=== PATIENT | female | born 1950 | race Caucasian/White ===

== ENCOUNTER → 2023-05-19 10:50 | Outpatient (REF) | payer OTHER, SELFPAY ==
[2023-05-19 12:11] LABS: % Basophils 0.8 % (0-2); % Eosinophils 1.5 % (0-6); % Immature Granulocytes 0.2 % (0-0.5); % Monocytes 8.1 % (1.7-9.3); % Neutrophils 60.4 % (42.2-75.2); Absolute Eosinophils 0.1 10^3/uL (0-0.7); Absolute Lymphocytes 1.4 10^3/uL (1.2-3.4); Absolute Monocytes 0.4 10^3/uL (0.1-0.6); Absolute Neutrophils 2.9 10^3/uL (1.4-6.5); Hematocrit 40.2 % (37.0-47.0); Hemoglobin 13.4 g/dL (12.0-16.0); Mean Corp Hgb Conc. 33.3 g/dL (33.0-37.0); Mean Corpuscular Hgb 30.2 pg (27.0-31.0); Mean Corpuscular Volume 90.7 fL (81.0-99.0); Mean Platelet Volume 9.9 fL (7.4-10.4); Nucleated Red Blood Cells % 0 %; Platelet Count 319 10^3/uL (130-400); Red Blood Cell Count 4.43 10^6/uL (4.20-5.40); Red Cell Dist. Width 12.8 % (11.5-14.5); White Blood Cell Count 4.7 10^3/uL (4.8-10.8)
[2023-05-19 13:17] LABS: ALT (SGPT) 23 U/L (0-35); AST (SGOT) 25 U/L (14-36); Albumin 4.4 g/dl (3.5-5.0); Alkaline Phosphatase 75 U/L (38-126); Blood Urea Nitrogen 17 mg/dl (7-17); Calcium 9.9 mg/dl (8.4-10.2); Carbon Dioxide 30 mmol/L (22-30); Chloride 98 mmol/L (98-107); Glucose 87 mg/dl (70-99); HDL Cholesterol 78 mg/dl; LDL Cholesterol, Calculated 147 mg/dl; Potassium 4.5 mmol/L (3.5-5.1); Sodium 135 mmol/L (135-145); Total Bilirubin 0.8 mg/dl (0.2-1.3); Total Cholesterol 245 mg/dl (50-199); Total Protein 7.7 g/dl (6.3-8.2); Triglyceride 102 mg/dl (10-149); Very Low Density Lipoprotein 20 mg/dl (0-30); eGFR 59.86
[2023-05-19 13:44] LABS: CEA 0.96 ng/ml; TSH Reflex To Free T4 3.44 uIU/ml (0.47-4.68)
[2023-05-19 14:09] LABS: Glycohemoglobin (HgbA1c) 5.6 % (4.0-5.6)
== END ==
LOC: REG 10:50
PROVIDERS: ATTENDING PHYSICIAN Internal Medicine Hematology & Oncology; FAMILY PHYSICIAN Nurse Practitioner Adult Health; REFERRING PHYSICIAN Surgery
DX: C20 Malignant neoplasm of rectum (principal)
CPT/HCPCS: 36415; 80053; 80061; 82378; 83036; 84443; 85025

== ENCOUNTER → 2023-06-01 12:47 | Outpatient (REF) | payer OTHER, SELFPAY | LOC: RAD 12:47 | PROVIDERS: ATTENDING PHYSICIAN Internal Medicine Hematology & Oncology; FAMILY PHYSICIAN Nurse Practitioner Adult Health | DX: C20 Malignant neoplasm of rectum (principal) | CPT/HCPCS: 71260; 74177; Q9967 ==

== ENCOUNTER 2023-07-04 06:18 | Day surgery (SDC) | payer OTHER, SELFPAY ==
[2023-06-28 07:01] VITALS: BMI 31.3
[2023-06-28 08:58] LABS: Hematocrit 42.1 % (37.0-47.0); Hemoglobin 13.7 g/dL (12.0-16.0); Mean Corp Hgb Conc. 32.5 g/dL (33.0-37.0); Mean Corpuscular Hgb 30.2 pg (27.0-31.0); Mean Corpuscular Volume 92.7 fL (81.0-99.0); Mean Platelet Volume 10.2 fL (7.4-10.4); Platelet Count 303 10^3/uL (130-400); Red Blood Cell Count 4.54 10^6/uL (4.20-5.40); Red Cell Dist. Width 12.9 % (11.5-14.5); White Blood Cell Count 5.6 10^3/uL (4.8-10.8)
[2023-06-28 09:34] LABS: Blood Urea Nitrogen 10 mg/dl (7-17); Calcium 9.5 mg/dl (8.4-10.2); Carbon Dioxide 26 mmol/L (22-30); Chloride 104 mmol/L (98-107); Estimated Creatinine Clearance 70 ml/min; Glucose 98 mg/dl (70-99); Potassium 4.2 mmol/L (3.5-5.1); Sodium 138 mmol/L (135-145); eGFR > 60.00
[2023-06-28 10:03] LABS: CEA 1.04 ng/ml
[2023-07-04] MEDS: NORMOSOL-R 1000 IV (09:00)
[2023-07-04 09:08] VITALS: BP 123/66; BMI 31.3
[2023-07-04] MEDS: TYLENOL 1000 MG PO (09:17)
[2023-07-04 15:00] VITALS: BP 103/70
[2023-07-04 15:15] VITALS: BP 118/77
[2023-07-04 15:36] VITALS: BP 123/78
[2023-07-04 15:45] VITALS: BP 112/87
== END 2023-07-04 16:10 | disposition home or self-care (01) ==
LOC: SDS 06:18
PROVIDERS: ATTENDING PHYSICIAN Surgery; FAMILY PHYSICIAN Nurse Practitioner Adult Health; OTHER PHYSICIAN Internal Medicine Gastroenterology; OTHER PHYSICIAN Internal Medicine Hematology & Oncology; OTHER PHYSICIAN Radiology Radiation Oncology
DX: K62.4 Stenosis of anus and rectum (principal); Z98.890 Other specified postprocedural states
CPT/HCPCS: 45500; 36415; 80048; 82378; 85027; 86850; 86900; 86901; 87070; J1335

== ENCOUNTER 2023-09-07 06:07 | Inpatient (IN) | payer OTHER, SELFPAY ==
[2023-08-30 10:22] LABS: Hematocrit 40.4 % (37.0-47.0); Hemoglobin 13.7 g/dL (12.0-16.0); Mean Corp Hgb Conc. 33.9 g/dL (33.0-37.0); Mean Corpuscular Hgb 30.7 pg (27.0-31.0); Mean Corpuscular Volume 90.6 fL (81.0-99.0); Mean Platelet Volume 9.9 fL (7.4-10.4); Platelet Count 306 10^3/uL (130-400); Red Blood Cell Count 4.46 10^6/uL (4.20-5.40); Red Cell Dist. Width 12.4 % (11.5-14.5); White Blood Cell Count 4.7 10^3/uL (4.8-10.8)
[2023-08-30 10:30] VITALS: BMI 31.3
[2023-08-30 10:44] LABS: APTT 28.5 Sec (23.4-35.0); PT 13.2 Sec (11.4-14.6)
[2023-08-30 11:23] LABS: ALT (SGPT) 29 U/L (0-35); AST (SGOT) 27 U/L (14-36); Albumin 4.5 g/dl (3.5-5.0); Alkaline Phosphatase 79 U/L (38-126); Blood Urea Nitrogen 10 mg/dl (7-17); Calcium 9.9 mg/dl (8.4-10.2); Carbon Dioxide 26 mmol/L (22-30); Chloride 105 mmol/L (98-107); Direct Bilirubin 0.2 mg/dl (0.0-0.4); Estimated Creatinine Clearance 70 ml/min; Glucose 112 mg/dl (70-99); HDL Cholesterol 72 mg/dl; LDL Cholesterol, Calculated 87 mg/dl; Potassium 4.5 mmol/L (3.5-5.1); Sodium 138 mmol/L (135-145); Total Cholesterol 184 mg/dl (50-199); Total Protein 7.4 g/dl (6.3-8.2); Triglyceride 126 mg/dl (10-149); Very Low Density Lipoprotein 25 mg/dl (0-30); eGFR > 60.00
[2023-08-30 11:53] LABS: CEA 1.02 ng/ml
[2023-08-30 12:06] LABS: Glycohemoglobin (HgbA1c) 5.6 % (4.0-5.6)
[2023-09-07] VITALS (18 sets, daily range): BP systolic 83–138; BP diastolic 51–83; BMI 31.3
[2023-09-07] MEDS: TYLENOL 1000 MG PO (06:29)
[2023-09-07] MEDS: ENTEREG 12 MG PO (06:29)
[2023-09-07] MEDS: HEPARIN 5000 UNITS SC (06:30)
[2023-09-07] MEDS: NORMOSOL-R 1000 IV ×2 (06:45→11:59)
--- NOTE | 2023-09-07 11:22 | W.IMMPOSTOP ---
Surgical Immed Post Op Note
-
Primary Surgeon: Papito Coombs MD
[facility] Chief Librarian: YURI Mann
Pre-op Diagnosis: Fecal incontinence
Post-op Diagnosis: Same
Procedure Performed: Robotic end sigmoid colostomy
Anesthesia Type: GET
Specimen / Cultures: None
Estimated Blood Loss: 20cc
Complications: None
Operative Findings: Multiple adhesions
Patient's updated.
--- NOTE | 2023-09-07 11:44 | SUR.PHASEI ---
Pt. presents with new ostomy in the LLQ. Stoma is red, moist, with no signs of of hematoma or active bleeding. Stoma is not round and protruding above skin. MD Coombs made aware
[2023-09-07] MEDS: TORADOL 15 MG IV ×2 (11:59→17:00)
[2023-09-07] MEDS: DILAUDID 0.25 MG IV ×2 (12:47→21:38)
[2023-09-07] MEDS: TYLENOL PO (14:29)
[2023-09-07] MEDS: TYLENOL 650 MG PO ×2 (14:31→21:37)
[2023-09-07] MEDS: ZOFRAN 4 MG IV (16:03)
--- NOTE | 2023-09-07 16:45 | PTCARENOTE ---
Addendum entered by Daniela Ko RN 09/07/23 17:21:
Per Clem TUBE WINDER HAND, Q1 x 4hr vital signs completed.
Original Note:
3578: Patient arrived to 2S. Full head to toe assessment completed. New colostomy creation on LLQ is red and moist. Colostomy is not budded, but Dr. Coombs made aware by Clem [employer] WINDER [employer]. 4 lap sites open to air with surgical glue. IVF running per
order. Patient wearing 1L NC with SpO2 greater than 92%. Call cleary within reach and bed in lowest position.
[2023-09-07] MEDS: ADDERALL 20 MG PO (16:59)
[2023-09-07] MEDS: KLONOPIN 0.5 MG PO (21:37)
[2023-09-08] MEDS: ABILIFY 10 MG PO ×2 (00:14→20:18)
[2023-09-08] MEDS: NORMOSOL-R 1000 IV ×2 (00:15→16:31)
[2023-09-08] MEDS: NON-FORMULARY ITEM PO (00:15)
[2023-09-08] MEDS: TORADOL 15 MG IV ×5 (00:15→23:59)
[2023-09-08] MEDS: TYLENOL 650 MG PO ×5 (00:15→20:14)
[2023-09-08 03:28] VITALS: BP 143/81
[2023-09-08] MEDS: SYNTHROID 150 MCG PO (04:18)
[2023-09-08] MEDS: DILAUDID 0.25 MG IV ×2 (04:18→10:15)
[2023-09-08 06:00] VITALS: BMI 31.8
[2023-09-08 07:25] VITALS: BP 137/78
[2023-09-08 07:32] LABS: % Basophils 0.1 % (0-2); % Immature Granulocytes 0.2 % (0-0.5); % Lymphocytes 10.9 % (20.5-51.1); % Monocytes 7.6 % (1.7-9.3); % Neutrophils 81.2 % (42.2-75.2); Absolute Monocytes 0.7 10^3/uL (0.1-0.6); Absolute Neutrophils 7.1 10^3/uL (1.4-6.5); Hematocrit 33.3 % (37.0-47.0); Hemoglobin 11.2 g/dL (12.0-16.0); Mean Corp Hgb Conc. 33.6 g/dL (33.0-37.0); Mean Corpuscular Hgb 31.2 pg (27.0-31.0); Mean Corpuscular Volume 92.8 fL (81.0-99.0); Nucleated Red Blood Cells % 0 %; Platelet Count 269 10^3/uL (130-400); Red Blood Cell Count 3.59 10^6/uL (4.20-5.40); Red Cell Dist. Width 12.7 % (11.5-14.5); White Blood Cell Count 8.8 10^3/uL (4.8-10.8)
[2023-09-08 07:48] LABS: Blood Urea Nitrogen 14 mg/dl (7-17); Calcium 8.8 mg/dl (8.4-10.2); Carbon Dioxide 25 mmol/L (22-30); Chloride 103 mmol/L (98-107); Estimated Creatinine Clearance 63 ml/min; Glucose 114 mg/dl (70-99); Potassium 4.3 mmol/L (3.5-5.1); Sodium 134 mmol/L (135-145); eGFR 59.86
[2023-09-08] MEDS: ZOFRAN 4 MG IV (08:44)
[2023-09-08] MEDS: ENTEREG 12 MG PO ×2 (09:21→20:14)
[2023-09-08] MEDS: CRESTOR 5 MG PO (09:21)
[2023-09-08] MEDS: NON-FORMULARY ITEM 40 MG PO (09:21)
--- NOTE | 2023-09-08 09:23 | W.PN.GS2 ---
Addendum entered and electronically signed by Theo Sam MD 09/08/23 14:34:
Patient seen and examined this a.m. with nurse practitioner. Agree with documented progress note. This is a delayed entry.
Initial postoperative nausea had been subsiding. Occasional flatus noted in her ostomy appliance. Headache. Some postop incisional pain.
AFVSS
ABD: Softly distended, robotic surgical sites with glue dressings, left-sided and ostomy with healthy mucosa but a bit edematous. Some bowel sweat in bag and small amounts of air. No stool
Assessment/plan: POD #1 status post RAL creation of end sigmoid colostomy
Holding diet on clears and advised to go slow as examination was a bit protuberant
Continue with routine postoperative supportive care
Original Note:
Today's Communication / Plan
-
clears as tolerated
Assessment / Plan
-
72 yo female with fecal incontinence s/p coloanal pull through for rectal cancer now POD #1 robotic end sigmoid colostomy for management
AFVSS
Passing flatus but with mild nausea
No leukocytosis
Mild acute anemia secondary to expected intraoperative losses and hemodilution
--Ok for clears as tolerated
--Scheduled Tylenol/toradol and prn dilaudid
--OOB/Ambulate
--Continue home meds
--Stoma nurse consult for ostomy care
--IVF until good PO intake
--Lovenox/SCD's for VTE ppx
Subjective Data
-
Date of Service: September 08, 2023
Patient seen and examined at bedside with primary RN. She notes a mild headache and some mild nausea. She has been passing some flatus via stoma. Did not sleep well overnight. Pain present but well managed with current regimen.
Objective Data
-
Intake and Output
08/02/24 08/03/24 08/04/24
06:59 06:59 06:59
Intake Total 1040 / 1040
Output Total 950 / 950
Balance 90 / 90
Intake:
Oral fluids 490 / 490
IV fluids (Total) 550 / 550
Normosol 150 / 150
Output:
Urine, Jernigan 950 / 950
Vital Signs
Temp Pulse Resp BP Pulse Ox
98.2 F 91 16 137/78 93
09/08/23 07:25 09/08/23 07:25 09/08/23 07:25 09/08/23 07:25 09/08/23 07:25
Lab Results
09/08/23 06:55
09/08/23 06:55
Calcium 8.8 mg/dl (8.4-10.2) 09/08/23 06:55
Total Bilirubin 1.0 mg/dl (0.2-1.3) 08/30/23 08:39
Direct Bilirubin 0.2 mg/dl (0.0-0.4) 08/30/23 08:39
AST 27 U/L (14-36) 08/30/23 08:39
ALT 29 U/L (0-35) 08/30/23 08:39
Alkaline Phosphatase 79 U/L (38-126) 08/30/23 08:39
Total Protein 7.4 g/dl (6.3-8.2) 08/30/23 08:39
Albumin 4.5 g/dl (3.5-5.0) 08/30/23 08:39
Physical Exam
-
NAD
ABD soft, nt, mild incisional tenderness. Incisions with ecchymosis present but intact glue and no erythema.
Stoma pink/viable with bowel sweat and some flatus noted within the appliance
[2023-09-08] MEDS: ADDERALL 20 MG PO ×3 (10:15→17:40)
[2023-09-08] MEDS: PROTONIX 40 MG PO (10:15)
--- NOTE | 2023-09-08 10:55 | CM ---
Reviewed the chart notes and spoke with the patient at the bedside. The patient resides with her spouse in a three story home with two steps to enter. The patient reports no DME/VN/SNF in the past. The patient confirmed her pharmacy of choice is
the [facility]. CM continues to be available to patient/family and is monitoring medical plan for needs at discharge.
Plan: Discharge plans will depend on the patient's progress.
[2023-09-08 11:25] VITALS: BP 132/76
[2023-09-08] MEDS: TYLENOL PO ×2 (12:30→12:36)
[2023-09-08] MEDS: COMPAZINE 10 MG IV (13:38)
[2023-09-08 15:30] VITALS: BP 134/77
[2023-09-08] MEDS: LOVENOX 40 MG SC (17:41)
[2023-09-08] MEDS: KLONOPIN 0.5 MG PO (20:18)
[2023-09-08] MEDS: NON-FORMULARY ITEM 8 MG PO (20:18)
[2023-09-08] MEDS: NORMOSOL-R IV (21:58)
[2023-09-08 23:33] VITALS: BP 138/82
[2023-09-09] MEDS: TYLENOL 650 MG PO ×5 (00:01→20:54)
[2023-09-09] MEDS: DILAUDID 0.25 MG IV (01:50)
[2023-09-09] MEDS: NORMOSOL-R 1000 IV (04:46)
[2023-09-09] MEDS: TYLENOL PO (05:43)
[2023-09-09] MEDS: TORADOL 15 MG IV ×3 (05:45→18:12)
[2023-09-09] MEDS: SYNTHROID 150 MCG PO (05:45)
[2023-09-09 06:00] VITALS: BMI 31.3
[2023-09-09 07:15] VITALS: BP 148/89
[2023-09-09 08:25] LABS: Hematocrit 31.8 % (37.0-47.0); Mean Corp Hgb Conc. 34.6 g/dL (33.0-37.0); Mean Corpuscular Hgb 31.5 pg (27.0-31.0); Mean Corpuscular Volume 91.1 fL (81.0-99.0); Mean Platelet Volume 9.8 fL (7.4-10.4); Platelet Count 242 10^3/uL (130-400); Red Blood Cell Count 3.49 10^6/uL (4.20-5.40); Red Cell Dist. Width 12.4 % (11.5-14.5); White Blood Cell Count 6.4 10^3/uL (4.8-10.8)
[2023-09-09] MEDS: ADDERALL 20 MG PO ×3 (08:46→16:27)
[2023-09-09] MEDS: ENTEREG 12 MG PO (08:46)
[2023-09-09] MEDS: CRESTOR 5 MG PO (08:46)
[2023-09-09] MEDS: PROTONIX 40 MG PO (08:46)
[2023-09-09] MEDS: NON-FORMULARY ITEM 40 MG PO (08:47)
--- NOTE | 2023-09-09 08:47 | W.PN.GS2 ---
Today's Communication / Plan
-
`
Assessment / Plan
-
72 yo female with fecal incontinence s/p coloanal pull through for rectal cancer now POD #2 robotic end sigmoid colostomy for management
AFVSS
Doing well postop with return of GI function
-- Full liquid diet today; resume low residue tomorrow a.m.
--Stop IVFs
--Scheduled Tylenol/toradol and prn dilaudid
--OOB/Ambulate
--Continue home meds
--Stoma nurse consult for ostomy care
--Lovenox/SCD's for VTE ppx
Subjective Data
-
Date of Service: September 09, 2023
Patient seen and examined
Feeling better this morning than yesterday.
Regular ostomy and some liquid stool starting to be expelled
Postoperative pain controlled
Mild nausea reported but appetite returning, tolerated clears well
Objective Data
-
Intake and Output
09/08/23 09/09/23 09/10/23
06:59 06:59 06:59
Intake Total 1040 / 1040 3960 / 3960
Output Total 950 / 950 3460 / 3460
Balance 90 / 90 500 / 500
Intake:
Oral fluids 490 / 490 2040 / 2040
IV fluids (Total) 550 / 550 1920 / 1920
Normosol 150 / 150
Output:
Liquid stool amount 10 / 10
Colostomy 10 / 10
Urine, Jernigan 950 / 950 3450 / 3450
Vital Signs
Temp Pulse Resp BP Pulse Ox
98.2 F 83 16 148/89 94
09/09/23 07:15 09/09/23 07:15 09/09/23 07:15 09/09/23 07:15 09/09/23 07:15
Lab Results
09/09/23 06:55
Calcium 8.8 mg/dl (8.4-10.2) 09/08/23 06:55
Total Bilirubin 1.0 mg/dl (0.2-1.3) 08/30/23 08:39
Direct Bilirubin 0.2 mg/dl (0.0-0.4) 08/30/23 08:39
AST 27 U/L (14-36) 08/30/23 08:39
ALT 29 U/L (0-35) 08/30/23 08:39
Alkaline Phosphatase 79 U/L (38-126) 08/30/23 08:39
Total Protein 7.4 g/dl (6.3-8.2) 08/30/23 08:39
Albumin 4.5 g/dl (3.5-5.0) 08/30/23 08:39
Physical Exam
-
NAD AAOx3
ABD: Soft, nondistended, mild tenderness palpation at incision sites. Incisions with glue dressings. Left-sided end colostomy with pink mucosa. Some liquid stool and air in appliance.
[2023-09-09 08:59] LABS: Blood Urea Nitrogen 10 mg/dl (7-17); Calcium 8.9 mg/dl (8.4-10.2); Carbon Dioxide 28 mmol/L (22-30); Chloride 101 mmol/L (98-107); Estimated Creatinine Clearance 78 ml/min; Glucose 89 mg/dl (70-99); Potassium 4.1 mmol/L (3.5-5.1); Sodium 134 mmol/L (135-145); eGFR > 60.00
[2023-09-09] MEDS: COMPAZINE 10 MG IV (11:16)
[2023-09-09 15:10] VITALS: BP 154/81
[2023-09-09] MEDS: ROXICODONE 5 MG PO ×2 (15:37→20:59)
[2023-09-09] MEDS: LOVENOX 40 MG SC (18:13)
[2023-09-09] MEDS: ABILIFY 10 MG PO (22:41)
[2023-09-09] MEDS: KLONOPIN 0.5 MG PO (22:41)
[2023-09-09] MEDS: NON-FORMULARY ITEM PO (22:41)
[2023-09-09 23:06] VITALS: BP 119/74
[2023-09-10] MEDS: TYLENOL 650 MG PO ×4 (00:22→15:24)
[2023-09-10] MEDS: TORADOL 15 MG IV ×3 (00:22→11:30)
[2023-09-10] MEDS: ROXICODONE 5 MG PO ×3 (03:15→15:25)
[2023-09-10] MEDS: TYLENOL PO (04:43)
[2023-09-10 06:00] VITALS: BMI 31.2
[2023-09-10] MEDS: SYNTHROID 150 MCG PO (06:05)
[2023-09-10 07:40] VITALS: BP 115/69
[2023-09-10] MEDS: NON-FORMULARY ITEM 40 MG PO (07:45)
[2023-09-10] MEDS: CRESTOR 5 MG PO (07:47)
[2023-09-10] MEDS: PROTONIX 40 MG PO (07:47)
[2023-09-10] MEDS: ADDERALL 20 MG PO ×3 (08:59→15:24)
--- NOTE | 2023-09-10 09:05 | W.PN.CRS1 ---
Today's Communication / Plan
-
Possible discharge later after stoma teaching.
I reviewed diet, medications, wound care, activity and follow-up
Assessment/Plan
-
POD#3 s/p robotic colostomy creation for fecal incontinence
No postop issues.
Subjective Data
Procedure
09/07/23 robotic colostomy creation for fecal incontinence
Subjective Data
Date of Service: September 10, 2023
Some abdominal discomfort/cramps. She is tolerating a low residue diet this am and the ostomy is functioning. No rectal discharge.
Objective Data
-
Vital Signs
Temp Pulse Resp BP Pulse Ox
98.8 F 103 16 115/69 97
09/10/23 07:40 09/10/23 07:40 09/10/23 07:40 09/10/23 07:40 09/10/23 07:40
Intake & Output
09/09/23 09/10/23 09/11/23
06:59 06:59 06:59
Intake Total 3960 / 3960 2560 / 2560
Output Total 3460 / 3460 3495 / 3495
Balance 500 / 500 -935 / -935
Intake:
Oral fluids 0 / 2040 2080 / 0
IV fluids (Total) 1920 / 1920 480 / 480
Output:
Liquid stool amount 295 / 295
Colostomy 295 / 295
Urine, Jernigan 3450 / 3450
Urine, Voided 3200 / 3200
Other:
How many times incontinent 2
MODERATE amount urine
Lab Results
09/09/23 06:55
09/09/23 06:55
Physical Exam
-
General: No Acute Distress
Abdomen: Soft, Non Distended, Non Tender and Other (stoma is viable)
Extremities: No Calf Tenderness
Incision: Clear, Dry, Intact
--- NOTE | 2023-09-10 15:00 | WOUNDNOTE ---
BRYCE RN note: Patient s/p ostomy surgery
See H&P for complete history.
Ostomy location and type: Colostomy
Instructed patient ostomy pouch emptying and changing appliance using Mead convex wafer # [id number]
Markos pouch # [id number]. Teaching done with Afshin at bedside. Fitted patient for a belt and teaching done on how to use. Patient states she is familiar with appliance changes and emptying since had an ileostomy in past, appreciated the
refresher .
Ostomy supplies ordered from [facility] and at bedside. Also gave additional convex wafers and Coloplast high output pouch with convex wafer. Stool now very liquid. Stoma pink only slightly budded and os pointing down, peristomal skin intact. Patient aware
ostomy nurses are available for outpatient visit if having leakage issues. Patient for discharge later today with VN, gave permission to order secure start kit. Note to case management: VN services recommended for ostomy teaching.
Nursing care plan updated, will follow as needed.
--- NOTE | 2023-09-10 15:22 | W.DS.TRANS ---
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
-
Discharge Instructions:
Sleep Apnea Risk Low
Discharge Diagnosis/Procedures Robotic colostomy creation
Diet Low Residue
Activity As tolerated,No strenuous activity
Additional Activity No heavy lifting <20 lbs for 6 weeks
Driving Restrictions No driving for 1 week
Bathing Restrictions OK to Shower
Other Services VN
Wound Care the glue will fall off usually in 2-3 weeks
Instructions:
Stand-Alone Forms:
Changes to Home Medications: No
Discharge Medications:
DC Medications w/original date entered in [facility]
coenzyme Q10 100 mg capsule (CoQ-10) 200 mg PO DAILY Supplement 06/13/22
diphenoxylate-atropine 2.5 mg-0.025 mg tablet (Lomotil) 1 tab PO PRN PRN diarrhea 06/13/22
esomeprazole magnesium 20 mg capsule,delayed release (Nexium) 20 mg PO DAILY Gastrointestinal Issue 06/13/22
fluticasone propionate 50 mcg/actuation nasal spray,suspension 2 spray intranasal PRN PRN allergies 06/13/22
levothyroxine 150 mcg tablet 150 mcg PO DAILY Thyroid 06/13/22
loratadine 10 mg tablet (Claritin) 10 mg PO PRN PRN allergies 06/13/22
ramelteon 8 mg tablet (Rozerem) 8 mg PO HS Mental Health 06/13/22
vortioxetine 20 mg tablet (Trintellix) 40 mg PO DAILY Mental Health 06/13/22
clonazepam 1 mg tablet (Klonopin) 0.5 mg PO HS Sleep 08/15/22
dextroamphetamine-amphetamine 10 mg tablet (Adderall) 20 mg PO TID Mental Health 08/15/22
loperamide 2 mg capsule 2 mg PO Q4H PRN diarrhea 08/15/22
multivitamin 1 tab PO DAILY Supplement 08/15/22
mecobalamin (vitamin B12) 1,000 mcg chewable tablet 1,000 mcg PO DAILY Supplement 09/21/22
diclofenac sodium 1 % topical gel 2 g topical QID PRN pain 06/27/23
rosuvastatin 5 mg tablet 5 mg PO DAILY High Cholesterol 07/04/23
aripiprazole 10 mg tablet (Abilify) 10 mg PO HS Mental Health/Anxiety 08/27/23
calcium 600 mg capsule 1,200 mg PO DAILY Supplement 08/27/23
oxycodone 5 mg tablet 5 mg PO Q8H PRN Pain #30 tabs 09/10/23
Home Medication Changes
Pending Results: No
[2023-09-10 15:45] VITALS: BP 156/84
--- NOTE | 2023-09-12 12:59 | WOUNDNOTE ---
WO RN note: Received a voicemail from patient asking for the family service caseworker's phone number because VN hasn't called her yet. t/c CM and spoke with Christine Whalen who stated she did not have patient on 09/09 however she will make sure she or someone from
Case Management will arrange VN. t/c to patient and explained someone from case management will refer patient to VN.
--- NOTE | 2023-09-12 13:07 | CM ---
Addendum entered by Kate Jones RN 09/12/23 14:01:
[facility] able to see patient.
Original Note:
Received call from software quality assurance analyst relaying a message she received from the patient. Patient was waiting on VN to contact her. VN referral sent to today, unable to see patient until Sunday at the earliest. Referral sent to [facility]IE waiting on
reply.
== END 2023-09-10 16:46 | disposition home health service (06) | DRG 330 ==
LOC: 2 SOUTH 06:07
PROVIDERS: Registered Nurse; ADMITTING PHYSICIAN Surgery; FAMILY PHYSICIAN Nurse Practitioner Adult Health
PROC: 0D1N4Z4 Bypass Sigmoid Colon to Cutaneous, Percutaneous Endoscopic Approach (ICD-10-PCS; 2023-09-07)
PROC: 8E0W4CZ Robotic Assisted Procedure of Trunk Region, Percutaneous Endoscopic Approach (ICD-10-PCS; 2023-09-07)
DX: R15.9 Full incontinence of feces (principal); D62 Acute posthemorrhagic anemia; F32.A Depression, unspecified; E03.9 Hypothyroidism, unspecified; K66.0 Peritoneal adhesions (postprocedural) (postinfection); E78.00 Pure hypercholesterolemia, unspecified; K21.9 Gastro-esophageal reflux disease without esophagitis; G47.00 Insomnia, unspecified; Z85.048 Personal history of other malignant neoplasm of rectum, rectosigmoid junction, and anus; Z92.21 Personal history of antineoplastic chemotherapy; Z92.3 Personal history of irradiation; Z79.890 Hormone replacement therapy; Z79.899 Other long term (current) drug therapy; Z90.49 Acquired absence of other specified parts of digestive tract; Z87.19 Personal history of other diseases of the digestive system; Z86.010 Personal history of colon polyps; Z88.1 Allergy status to other antibiotic agents; Z88.2 Allergy status to sulfonamides; Z88.8 Allergy status to other drugs, medicaments and biological substances
CPT/HCPCS: 36415; 80048; 80053; 80061; 80076; 82378; 83036; 85025; 85027; 85610; 85730; 86850; 86900; 86901; 87070; 93005; J1335

== ENCOUNTER 2023-09-14 18:48 | Inpatient (IN) | payer OTHER, SELFPAY ==
[2023-09-14 16:36] VITALS: BP 139/79
--- NOTE | 2023-09-14 17:46 | ED.GENMED ---
History of Present Illness
General
Chief Complaint: Skin Problem
Source: patient
Exam Limitations: none
Time Seen by Provider: 09/14/23 17:03
Nursing documentation reviewed up to this point in time: agreed with
History of Present Illness
History of Present Illness:
Patient status post colonoscopy 1 week ago secondary to chronic fecal incontinence with resulting left lower abdomen stoma, presents to ED secondary to persistent redness with burning sensation of lower abdomen over the past 3 days. Patient spoke
with her colorectal surgeon, Dr. Coombs, who recommended patient come to ED for an evaluation, including admission for IV antibiotics. Denies fever or chills. Denies nausea or vomiting. Denies dizziness. Denies loss of appetite.
Review of Systems
Review of Systems
Allergies reviewed?: Yes
All Other Systems: ROS reviewed and negative except as documented in HPI and ROS
Constitutional: Reports no symptoms
EENT: Reports no symptoms
Respiratory: Reports no symptoms
Cardiac: Reports no symptoms
ABD/GI: Reports abdominal pain; Denies vomiting
: Reports no symptoms
Musculoskeletal: Reports no symptoms
Skin: Reports other (abdominal wall redness)
Neurological: Reports no symptoms
Phy Exam
Physical Exam
Physical Exam:
Physical Exam
General: no apparent distress, not acutely ill. afebrile
Head: nc/at. eomi
Neck: supple. no meningeal signs.
Heart: s1/s2 regular rate and rhythm, no murmur. equal radial pulses.
Lungs: no acute respiratory distress. clear bilaterally
Abdomen: normal bowel sounds. not tender. stoma noted over left lower abdomen, with surrounding erythema, without tenderness.
Neuro: alert and oriented. no focal neurological deficits
Skin: warm to touch
Psychiatric: well kept. interactive and cooperative
Extremities: no edema. no calf tenderness.
Course
Orders/Labs/Results
Orders:
Orders
09/14/23 Dinner
Regular
At Your Request: Full Participation
09/14/23 17:16
Piperacillin/Tazo 3.375 Gram [Zosyn] 3.375 gram in 50 ml IV NOW
09/14/23 17:45
Basic Metabolic Panel Urgent
Complete Blood Count/With Diff Urgent
Lactic Acid Q4H
Comment: CANCEL 2nd LACTIC ACID IF 1st LACTIC ACID IS LESS THAN 2
09/14/23 18:14
0.9% Sodium Chloride 500 ml [Nss] 500 ml IV BOLUS
09/14/23 18:37
Admit/Transfer Patient As Directed
Co-Sign Provider:
Level of Care: Inpatient admission
Assign to:: Medical/Surgical
Physician / Group: don
Diagnosis: abdominal wall cellulitis
Reason for Hospitalization: abdominal wall cellulitis
Expected length of stay greater than two midnights?: Yes
ELOS- Estimated Length of Stay in days: 2
I certify the patient meets the requirements for IP care: Yes
PRN Pain Medication Management As Directed
May give lesser potent ordered pain med per pt: Yes
preference::
Protocol:: Medication orders for pain may be administered in a
manner that supports deferring to patient preference
when the pt is:
- Requesting an ordered lesser potent pain medication.
Least to most potent pain medications are defined
as: acetaminophen < NSAID < tramadol < opioids
(morphine, oxycodone, hydromorphone).
- Requesting a lesser dose of the same medication IF
ORDERED.
- Requesting a less intrusive route of administration
if both routes are prescribed by the provider (PO <
IV).
09/14/23 18:38
Code Status As Directed
Resuscitation Status: Full Code
09/14/23 20:11
0.9% Sodium Chloride 1000 ml [Nss] 1,000 ml IV 80 mls/hr
Heparin 5,000 units SC Q12
Loratadine [Claritin] 10 mg PO DAILYPRN PRN
Oxycodone [Roxicodone] 5 mg PO Q8HPRN PRN
09/14/23 20:11
ColoRectal Surgery Consult Routine
Consulting Provider: Markos Coombs
Was physician already notified: Yes
Activity As Directed
Activity Level: As Tolerated
Vital Signs As Directed
Frequency: Per unit guidelines
DX Deep Vein Thrombosis Video Routine
09/14/23 20:32
Clonazepam [Klonopin] 0.5 mg PO DAILYPRN PRN
09/14/23 22:00
Aripiprazole [Abilify] 10 mg PO HS
Clonazepam [Klonopin] 0.5 mg PO HS
ramelteon [Rozerem] See Dose Instructions PO HS
09/15/23 00:00
Piperacillin/Tazo 3.375 Gram [Zosyn] 3.375 gram in 50 ml IV Q6H
09/15/23 06:00
Complete Blood Count/With Diff IN AM
Comprehensive Metabolic Panel IN AM
Levothyroxine [Synthroid] 150 mcg PO DAILY @ 0600
09/15/23 08:00
Amphet Asp/Amphet/D-Amphet [Adderall] 20 mg PO TID@0800,1300,1700
Calcium Carbonate [Oscal Bebeto 500] 1,000 mg PO DAILY
Cyanocobalamin [Vitamin B-12] 1,000 mcg PO DAILY
Multivitamin [Theragran] 1 tablet PO DAILY
Pantoprazole [Protonix] 40 mg PO DAILY
Rosuvastatin Calcium [Crestor] 5 mg PO DAILY
vortioxetine [Trintellix] See Dose Instructions PO DAILY
Abnormal Lab Results
09/14/23
17:45
RBC 3.66 L 10^6/uL
(4.20-5.40)
Hgb 11.3 L g/dL
(12.0-16.0)
Hct 32.6 L %
(37.0-47.0)
Abs Immat Gran (auto) 0.1 H 10^3/uL
(0-0.05)
Absolute Lymphs (auto) 0.9 L 10^3/uL
(1.2-3.4)
Immature Gran % 1.6 H %
(0-0.5)
Lymphocytes % 18.4 L %
(20.5-51.1)
Monocytes % 12.3 H %
(1.7-9.3)
Sodium 132 L mmol/L
(135-145)
Creatinine 1.2 H mg/dL
(0.6-1.0)
Glucose 118 H mg/dl
(70-99)
09/14/23 17:45
09/14/23 17:45
Vital Signs
Initial and Last Documented VS:
Initial Vital Signs
Temp Pulse Resp BP Pulse Ox
98.7 F 79 17 139/79 99
09/14/23 16:36 09/14/23 16:36 09/14/23 16:36 09/14/23 16:36 09/14/23 16:36
Last Documented Vital Signs
Temp Pulse Resp BP Pulse Ox
97.7 F 83 16 149/81 98
09/14/23 20:15 09/14/23 20:15 09/14/23 20:15 09/14/23 20:15 09/14/23 20:15
MDM/Problems Addressed
MDM/Problems Addressed:
Patient with exam findings concerning for abdominal wall cellulitis, with recent procedure. Per Dr. Coombs, call to surgery, imaging study at this time, i.e. CT scan, not recommended. Will admit for IV antibiotics and clinical progression.
*Critical Care Note
Total Time (30-74mins, 75-104mins- exclusive of procedures): Not Applicable
ED Attending Note
-
Portions of this chart may have been created with voice recognition software.� Occasional wrong word or��sound alike� substitutions may have occurred due to the inherent limitations of voice recognition software.
Discharge Plan
Departure
Patient Disposition: Admit
Date of Disposition: 09/14/23
Time of Disposition: 18:13
Admit to: Med/Surg
Presentation/result/management discussed w/ accepting MD/DO: Hospitalist
Discharge Problem:
Cellulitis of abdominal wall
Interventions
Interventions:
*Risk Screen - Suicide Last Done: 09/14/23 18:00
*General Assessment Last Done: 09/14/23 18:00
*Neglect/Abuse Screening Last Done: 09/14/23 18:00
ED- Fall Risk Assessment Last Done: 09/14/23 18:00
*ED COVID-19 Vaccine History Last Done: 09/14/23 20:17
*Nursing Disposition Last Done: 09/14/23 20:17
Discharge Date and Time
Discharge Date/Time: 09/14/23 20:15
[2023-09-14] MEDS: ZOSYN 50 IV (17:53)
[2023-09-14 18:03] VITALS: BP 101/54
[2023-09-14 18:09] LABS: Lactic Acid 1.1 mmol/L (0.7-2.0)
[2023-09-14 18:11] LABS: % Basophils 0.8 % (0-2); % Eosinophils 2.6 % (0-6); % Immature Granulocytes 1.6 % (0-0.5); % Lymphocytes 18.4 % (20.5-51.1); % Monocytes 12.3 % (1.7-9.3); % Neutrophils 64.3 % (42.2-75.2); Absolute Eosinophils 0.1 10^3/uL (0-0.7); Absolute Immature Granulocytes 0.1 10^3/uL (0-0.05); Absolute Lymphocytes 0.9 10^3/uL (1.2-3.4); Absolute Monocytes 0.6 10^3/uL (0.1-0.6); Absolute Neutrophils 3.2 10^3/uL (1.4-6.5); Hematocrit 32.6 % (37.0-47.0); Hemoglobin 11.3 g/dL (12.0-16.0); Mean Corp Hgb Conc. 34.7 g/dL (33.0-37.0); Mean Corpuscular Hgb 30.9 pg (27.0-31.0); Mean Corpuscular Volume 89.1 fL (81.0-99.0); Mean Platelet Volume 9.9 fL (7.4-10.4); Nucleated Red Blood Cells % 0 %; Platelet Count 340 10^3/uL (130-400); Red Blood Cell Count 3.66 10^6/uL (4.20-5.40); Red Cell Dist. Width 12.1 % (11.5-14.5)
[2023-09-14 18:13] LABS: Blood Urea Nitrogen 13 mg/dl (7-17); Calcium 9.1 mg/dl (8.4-10.2); Carbon Dioxide 24 mmol/L (22-30); Chloride 99 mmol/L (98-107); Glucose 118 mg/dl (70-99); Potassium 3.8 mmol/L (3.5-5.1); Sodium 132 mmol/L (135-145); eGFR 48.09
--- NOTE | 2023-09-14 18:40 | HPS.HSE ---
Family Physician
-
Family Physician: MEHREEN Muhammad
Chief Complaint
-
abdominal pain
History of Present Illness
72-year-old female past medical history of colorectal cancer status post initial ileostomy, perineal resection 7 years ago with subsequent anastomosis complicated by anal sphincter stricture resulting in fecal continence for which she underwent
colostomy creation for fecal incontinence 7 days ago, anxiety/depression, ADHD, GERD, hypothyroidism, hyperlipidemia, presenting with abdominal pain and redness starting after stoma placement which has been getting worse. She denies any fevers or
chills. She has decreased appetite but denies nausea or vomiting. Output from the ostomy has been normal. Denies any watery stool or blood in the stool. She denies any chest pain or shortness of breath. She saw Dr. Coombs in the office today who
recommended she come to the hospital for IV antibiotics for abdominal wall cellulitis.
She denies smoking or alcohol use.
Medical History
Past Medical History
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
creation for fecal incontinence 7 days ago, anxiety/depression, ADHD, GERD, hypothyroid)
Past Surgical History: Reports Other (ileostomy perineal resection with subsequent anastamosis complicated by anal sphincter stricture, colostomy )
Social History
Tobacco: Non-smoker
Alcohol: None
Drug: None
Family History
Family History: Not pertinent
Allergies / Home Medications
Allergies reflects when Allergies were last updated in [facility].
Home Medications with original date entered in [facility]
Allergy/Medication List:
Allergies
Allergy/AdvReac Type Severity Reaction Status Date / Time
lamotrigine [From Lamictal] Allergy Rash/FEVER Verified 09/14/23 16:34
levofloxacin [From Levaquin] Allergy joint pain Verified 09/14/23 16:34
oxaliplatin Allergy Anaphylaxis Verified 09/14/23 16:34
Sulfa (Sulfonamide Allergy Rash/FEVER Verified 09/14/23 16:34
Antibiotics)
Home Medications
coenzyme Q10 100 mg capsule (CoQ-10) 200 mg PO DAILY Supplement 06/13/22
diphenoxylate-atropine 2.5 mg-0.025 mg tablet (Lomotil) 1 tab PO QIDPRN PRN diarrhea 06/13/22
esomeprazole magnesium 20 mg capsule,delayed release (Nexium) 20 mg PO DAILY Gastrointestinal Issue 06/13/22
fluticasone propionate 50 mcg/actuation nasal spray,suspension 2 spray intranasal DAILYPRN PRN allergies 06/13/22
levothyroxine 150 mcg tablet 150 mcg PO DAILY Thyroid 06/13/22
loratadine 10 mg tablet (Claritin) 10 mg PO DAILYPRN PRN allergies 06/13/22
ramelteon 8 mg tablet (Rozerem) 8 mg PO HS Mental Health 06/13/22
vortioxetine 20 mg tablet (Trintellix) 40 mg PO DAILY Mental Health 06/13/22
clonazepam 1 mg tablet (Klonopin) 0.5 mg PO HS Sleep 08/15/22
loperamide 2 mg capsule 2 mg PO Q4HPRN PRN diarrhea 08/15/22
multivitamin 1 tab PO DAILY Supplement 08/15/22
diclofenac sodium 1 % topical gel 2 g topical QIDPRN PRN arthritis pain 06/27/23
rosuvastatin 5 mg tablet 5 mg PO DAILY High Cholesterol 07/04/23
aripiprazole 10 mg tablet (Abilify) 10 mg PO HS Mental Health/Anxiety 08/27/23
calcium carbonate (Calcium 600) 1,200 mg PO DAILY 09/14/23
clonazepam 1 mg tablet 0.5 mg PO DAILYPRN PRN anxiety 09/14/23
cyanocobalamin (vitamin B-12) 1,000 mcg tablet 1,000 mcg PO DAILY 09/14/23
dextroamphetamine-amphetamine 20 mg tablet 20 mg PO TID 09/14/23
oxycodone 5 mg tablet 5 mg PO Q8HPRN PRN moderate pain 09/14/23
Review of Systems
-
History Source: Patient
A 12 point ROS was completed and negative except as noted: Yes
Constitutional: Reports No Symptoms
EENT: Reports No Symptoms
Respiratory: Reports No Symptoms
Cardiac: Reports No Symptoms
Abdomen/GI: Reports See HPI
: Reports No Symptoms
Musculoskeletal: Reports No Symptoms
Skin: Reports No Symptoms
Neurological: Reports No Symptoms
Endocrine: Reports No Symptoms
Hematologic/Lymphatic: Reports No Symptoms
Psych: Reports No Symptoms
Physical Exam
Vital Signs
Vital Signs
Temp Pulse Resp BP Pulse Ox
98.7 F 79 17 101/54 99
09/14/23 16:36 09/14/23 16:36 09/14/23 16:36 09/14/23 18:03 09/14/23 18:30
Physical Exam
General: Well Developed, Well Nourished and No Apparent Distress
HEENT: NormoCephalic, Moist mucous membranes and Atraumatic
Respiratory: Clear
Cardiac: S1/S2 and Regular Rhythm; No Murmur or Rub
GI: Soft, Non Tender, Normal Bowel Sounds and Tender (erythema around colostomy ); No Organomegaly
Rectal: Deferred by Provider
Musculoskeletal: No Clubbing, No Cyanosis and No Edema
Skin: No Rash
Neuro: Nonfocal/grossly intact
Laboratory Results
-
09/14/23 17:45
09/14/23 17:45
Laboratory Results
Lactic Acid 1.1 mmol/L (0.7-2.0) 09/14/23 17:45
Data Reviewed
-
Lab Data: Labs Reviewed by me
Old Records: Reviewed
Impression/Plan
-
IMPRESSION:
PLAN:
# Abdominal wall cellulitis after colostomy creation for fecal incontinence 1 week prior
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
-erythema around colostomy
-Zosyn
-Continue as needed oxycodone for pain
-Colorectal surgery consulted
# Acute kidney injury
-IV fluids
Anxiety/depression
-Continue aripiprazole
-Continue clonazepam
-Continue Trintellix
ADHD
-Continue Adderall
Hypothyroidism
-Continue levothyroxine
Hyperlipidemia
-Continue statin
GERD
-Continue esomeprazole
Full code
DVT prophylaxis�heparin
Regular diet
[2023-09-14] MEDS: NSS 500 IV (18:49)
[2023-09-14 19:00] VITALS: BP 103/77
[2023-09-14 20:00] VITALS: BP 100/53
[2023-09-14 20:15] VITALS: BP 149/81; BMI 30.9
[2023-09-14] MEDS: ABILIFY 10 MG PO (21:09)
[2023-09-14] MEDS: HEPARIN 5000 UNITS SC (21:09)
[2023-09-14] MEDS: NSS 1000 IV (21:09)
[2023-09-14] MEDS: KLONOPIN 0.5 MG PO (21:11)
[2023-09-14] MEDS: NON-FORMULARY ITEM 8 MG PO (22:57)
[2023-09-14 23:00] VITALS: BP 114/54
[2023-09-15] MEDS: ZOSYN 50 IV ×5 (00:32→23:57)
[2023-09-15] MEDS: SYNTHROID 150 MCG PO (05:51)
[2023-09-15 06:29] LABS: % Eosinophils 4.1 % (0-6); % Immature Granulocytes 0.8 % (0-0.5); % Lymphocytes 21.7 % (20.5-51.1); % Monocytes 13.4 % (1.7-9.3); Absolute Basophils 0.1 10^3/uL (0-0.2); Absolute Eosinophils 0.2 10^3/uL (0-0.7); Absolute Lymphocytes 1.1 10^3/uL (1.2-3.4); Absolute Monocytes 0.7 10^3/uL (0.1-0.6); Absolute Neutrophils 2.9 10^3/uL (1.4-6.5); Hematocrit 30.4 % (37.0-47.0); Hemoglobin 10.7 g/dL (12.0-16.0); Mean Corp Hgb Conc. 35.2 g/dL (33.0-37.0); Mean Corpuscular Hgb 31.4 pg (27.0-31.0); Mean Corpuscular Volume 89.1 fL (81.0-99.0); Mean Platelet Volume 9.8 fL (7.4-10.4); Nucleated Red Blood Cells % 0 %; Platelet Count 300 10^3/uL (130-400); Red Blood Cell Count 3.41 10^6/uL (4.20-5.40); White Blood Cell Count 4.8 10^3/uL (4.8-10.8)
[2023-09-15 06:41] LABS: ALT (SGPT) 18 U/L (0-35); AST (SGOT) 16 U/L (14-36); Albumin 3.2 g/dl (3.5-5.0); Alkaline Phosphatase 76 U/L (38-126); Blood Urea Nitrogen 11 mg/dl (7-17); Calcium 8.8 mg/dl (8.4-10.2); Carbon Dioxide 26 mmol/L (22-30); Chloride 107 mmol/L (98-107); Estimated Creatinine Clearance 52 ml/min; Glucose 105 mg/dl (70-99); Potassium 4.1 mmol/L (3.5-5.1); Sodium 136 mmol/L (135-145); Total Bilirubin 0.5 mg/dl (0.2-1.3); Total Protein 5.7 g/dl (6.3-8.2); eGFR 48.09
[2023-09-15 07:20] VITALS: BP 116/59
--- NOTE | 2023-09-15 07:27 | CON.CRS ---
Consultation
-
Date/Time Consultation Requested: 09/14/23 @20:11
Date/Time Consultation Performed: 09/15/23 @ 7:20
Requesting Provider: Dorene Guardado MD
Performing Provider: Papito Coombs MD
Reason for Consultation: Abdominal wall cellulitis
Medical History
-
Chief Complaint: Abdominal wall redness and burning
History of Present Illness:
72-year-old female who underwent a robotic end colostomy on 09/07/2023 for fecal incontinence who presented to the office with redness and a burning sensation in the lower abdomen that began a few days earlier. �She denies any fevers or chills and her
appetite is good. �The ostomy is functioning and she is able to pouching without difficulty.
She has a history of distal rectal cancer ([id number]) that was treated with neoadjuvant chemoradiation followed by a coloanal pull-through and diverting ileostomy in 2020.� Final pathology revealed a moderately differentiated adenocarcinoma with
negative margins as well as 26 negative lymph nodes ([id number]). �The ileostomy was closed in May 2021 and she has been disease-free.
Postoperatively she did have issues with incontinence and prolapse.� She underwent a couple of operations to help with the prolapsing tissue and ultimately an InterStim in September 2022.� She continues with control issues and now has developed a
stenosis and underwent surgery on 07/04/2023.� Despite the surgery, she continues with incontinence and loose stools and wishes to proceed with fecal diversion.
Past Medical History
Past Medical History: GERD, Hypercholesterolemia, Hypothyroidism, Psychiatric (anxiety/depression, ADHD) and Other (h/o rectal cancer, arthritis)
Past Surgical History: Bowel Resection (as per the HPI) and Other (InterStim)
Social History
Tobacco: Non-Smoker
Alcohol: None
Personal:
Living: With Family
Family History
Family History: Reviewed & Not Pertinent
Allergies / Home Medications
Allergy/AdvReac Type Severity Reaction Status Date / Time
lamotrigine [From Lamictal] Allergy Rash/FEVER Verified 09/14/23 16:34
levofloxacin [From Levaquin] Allergy joint pain Verified 09/14/23 16:34
oxaliplatin Allergy Anaphylaxis Verified 09/14/23 16:34
Sulfa (Sulfonamide Allergy Rash/FEVER Verified 09/14/23 16:34
Antibiotics)
�Medication �Instructions �Recorded �Confirmed �Type
coenzyme Q10 100 mg capsule 200 mg PO DAILY Supplement 06/13/22 09/14/23 History
(CoQ-10)
diphenoxylate-atropine 2.5 1 tab PO QIDPRN PRN diarrhea 06/13/22 09/14/23 History
mg-0.025 mg tablet (Lomotil)
esomeprazole magnesium 20 mg 20 mg PO DAILY Gastrointestinal 06/13/22 09/14/23 History
capsule,delayed release (Nexium) Issue
fluticasone propionate 50 2 spray intranasal DAILYPRN PRN 06/13/22 09/14/23 History
mcg/actuation nasal allergies
spray,suspension
levothyroxine 150 mcg tablet 150 mcg PO DAILY Thyroid 06/13/22 09/14/23 History
loratadine 10 mg tablet (Claritin) 10 mg PO DAILYPRN PRN allergies 06/13/22 09/14/23 History
ramelteon 8 mg tablet (Rozerem) 8 mg PO HS Mental Health 06/13/22 09/14/23 History
vortioxetine 20 mg tablet 40 mg PO DAILY Mental Health 06/13/22 09/14/23 History
(Trintellix)
clonazepam 1 mg tablet (Klonopin) 0.5 mg PO HS Sleep 08/15/22 09/14/23 History
loperamide 2 mg capsule 2 mg PO Q4HPRN PRN diarrhea 08/15/22 09/14/23 History
multivitamin 1 tab PO DAILY Supplement 08/15/22 09/14/23 History
diclofenac sodium 1 % topical gel 2 g topical QIDPRN PRN arthritis 06/27/23 09/14/23 History
pain
rosuvastatin 5 mg tablet 5 mg PO DAILY High Cholesterol 07/04/23 09/14/23 History
aripiprazole 10 mg tablet (Abilify) 10 mg PO HS Mental Health/Anxiety 08/27/23 09/14/23 History
calcium carbonate (Calcium 600) 1,200 mg PO DAILY 09/14/23 09/14/23 History
clonazepam 1 mg tablet 0.5 mg PO DAILYPRN PRN anxiety 09/14/23 09/14/23 History
cyanocobalamin (vitamin B-12) 1,000 mcg PO DAILY 09/14/23 09/14/23 History
1,000 mcg tablet
dextroamphetamine-amphetamine 20 20 mg PO TID 09/14/23 09/14/23 History
mg tablet
oxycodone 5 mg tablet 5 mg PO Q8HPRN PRN moderate pain 09/14/23 09/14/23 History
Review of Systems
-
History Source: Patient
All other systems: Negative unless noted
A 10 point review of systems was completed, and was negative except as per HPI.
Physical Exam
Vital Signs
Temp 97.9 F 09/14/23 23:00
Pulse 88 09/14/23 23:00
Resp Rate 16 09/14/23 23:00
Blood pressure 114/54 09/14/23 23:00
SaO2 100 09/14/23 23:00
09/14/23 09/15/23 09/16/23
06:59 06:59 06:59
Actual Weight 94.982 kg
Body Mass Index (BMI) 30.9
Lab Results / Allergies
09/15/23 06:19
09/15/23 06:19
WBC 4.8 10^3/uL (4.8-10.8) 09/15/23 06:19
Hgb 10.7 g/dL (12.0-16.0) L 09/15/23 06:19
Hct 30.4 % (37.0-47.0) L 09/15/23 06:19
Plt Count 300 10^3/uL (130-400) 09/15/23 06:19
Abs Immat Gran (auto) 0.0 10^3/uL (0-0.05) 09/15/23 06:19
Neutrophils % 59.0 % (42.2-75.2) 09/15/23 06:19
Allergy/AdvReac Type Severity Reaction Status Date / Time
lamotrigine [From Lamictal] Allergy Rash/FEVER Verified 09/14/23 16:34
levofloxacin [From Levaquin] Allergy joint pain Verified 09/14/23 16:34
oxaliplatin Allergy Anaphylaxis Verified 09/14/23 16:34
Sulfa (Sulfonamide Allergy Rash/FEVER Verified 09/14/23 16:34
Antibiotics)
Physical Exam
General: Well Developed, Well Nourished and No Apparent Distress
HEENT: Anicteric
Respiratory: Clear
Cardiac: Regular Rhythm
GI: Soft, Non Distended and Other (erythema of the lower abdominal wall on her pannus, extending from the stoma in the LLQ to the RLQ; induration and tenderness just inferior to the stoma; the lower edge of the stoma has retracted below skin level)
Musculoskeletal: No Edema
Neuro: Awake and Alert
Assessment / Plan
-
Abdominal wall cellulitis following a colostomy creation, most likely due to retraction of the lower edge of the ostomy. I suspect the retraction is due to the weight of her distal colon/mesentery which could not be divided due concerns of ischemia
to the distal segment. The infection appears superficial.
She is admitted for antibiotics and local care. I explained to her and her that she might require surgery which could involve a local repair, resiting of the stoma, a completion proctectomy, or proximal fecal diversion. �Will ask our
enterostomal therapists to see when available. All questions answered.
[2023-09-15] MEDS: OSCAL CAL 500 1000 MG PO (08:28)
[2023-09-15] MEDS: CRESTOR 5 MG PO (08:28)
[2023-09-15] MEDS: THERAGRAN 1 TABLET PO (08:29)
[2023-09-15] MEDS: ADDERALL 20 MG PO ×3 (08:29→16:38)
[2023-09-15] MEDS: PROTONIX 40 MG PO (08:29)
[2023-09-15] MEDS: HEPARIN 5000 UNITS SC ×2 (08:29→19:53)
[2023-09-15] MEDS: VITAMIN B-12 1000 MCG PO (08:30)
[2023-09-15] MEDS: NON-FORMULARY ITEM 40 MG PO (08:30)
[2023-09-15] MEDS: NSS IV (08:43)
--- NOTE | 2023-09-15 09:38 | W.PN.HOSP.TC ---
Today's Communication/Plan
-
c/w IV Abx
Consult IDc/w IVF
Assessment / Plan
Assessment / Plan
Physical Exam
General: Well Developed, Well Nourished and No Apparent Distress
HEENT: Normocephalic, Moist mucous membranes and Atraumatic
Respiratory: Clear
Cardiac: S1/S2 and Regular Rhythm; No Murmur or Rub
GI: Soft, Non Tender, Normal Bowel Sounds and Tender (erythema around colostomy ); No Organomegaly
Musculoskeletal: No Clubbing, No Cyanosis and No Edema
Skin: No Rash
Neuro: Nonfocal/grossly intact
Psych: no agitation
# Abdominal wall cellulitis after colostomy creation for fecal incontinence 1 week prior
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
-erythema with induration around colostomy( mostly lower of the opening)
- No fevers. No leukocytosis. Normal Lactic acid.
-c/w IV Zosyn
-Continue as needed oxycodone for pain
-Colorectal surgery consulted
Per Dr Coombs: Abdominal wall cellulitis following a colostomy creation, most likely due to retraction of the lower edge of the ostomy. I suspect the retraction is due to the weight of her distal colon/mesentery which could not be divided due
concerns of ischemia to the distal segment. The infection appears superficial. Dr. Coombs explained to her and her that she might require surgery which could involve a local repair, resiting of the stoma, a completion proctectomy, or proximal
fecal diversion.
- Appreciate ID help
# hyponatremia, resolved
# Acute kidney injury
-IV fluids
#Anxiety/depression
-Continue aripiprazole
-Continue clonazepam
-Continue Trintellix
#ADHD
-Continue Adderall
#Hypothyroidism
-Continue levothyroxine
#Hyperlipidemia
-Continue statin
GERD
-Continue esomeprazole
Full code
DVT prophylaxis�heparin
Regular diet
Total time spent to see the patient, examine the patient on the floor, review data and lab results, discuss treatment plan with patient, nursing staff around 57 minutes.
Anticipated Discharge: > 48 hours
Subjective/Interval History
-
Date of Service: September 15, 2023
No chest pain
No sob
Mild abd wall pain
Objective Data
-
Labs:
Laboratory Results
09/15/23
06:19
WBC 4.8
Hgb 10.7 L
Hct 30.4 L
Plt Count 300
Sodium 136
Potassium 4.1
Chloride 107
Carbon Dioxide 26
BUN 11
Creatinine 1.2 H
Glucose 105 H
Calcium 8.8
Total Bilirubin 0.5
AST 16
ALT 18
Alkaline Phosphatase 76
Vital Signs:
Vital Signs
Temp Pulse Resp BP Pulse Ox
98.3 F 90 17 116/59 98
09/15/23 07:20 09/15/23 07:20 09/15/23 07:20 09/15/23 07:20 09/15/23 07:20
I&O
09/14/23 09/15/23 09/16/23
06:59 06:59 06:59
Intake Total 2340 / 2340
Output Total 200 / 200
Balance 2340 / 2140 -200 / -200
[2023-09-15] MEDS: ROXICODONE 5 MG PO ×2 (09:49→20:05)
[2023-09-15] MEDS: NSS 1000 IV ×2 (10:15→23:58)
--- NOTE | 2023-09-15 11:17 | CON.ID ---
Consultation
-
Date/Time Consultation Requested: September 15, 2023 0653
Date/Time Consultation Performed: September 15, 2023 1120
Requesting Provider: Dr. Lina Olguin
Performing Provider: Dr. Johanne Ye
Reason for Consultation: Abdominal wall cellulitis
Chief Complaint / Past History
Chief Complaint
Abdominal pain and redness
History of Present Illness
72-year-old female with history of colorectal cancer status post chemoradiation followed by coloanal pull-through, developed anorectal stenosis status post proctoplasty July 04, 2023, persistent for fecal incontinence and was recently admitted from
September 06 to September 09 status post robotic and sigmoid colostomy on September 07, 2023. On September 10 patient noted lower abdominal pain initially on the left side of the ostomy then progressed to the right side. She noted erythema that progressed. She
saw colorectal for follow-up who sent her to the hospital yesterday. She was started on Zosyn. Patient denies any fevers or chills. No leakage from the ostomy bag. The left side is better, right side remains red, warm, and painful.
Past History
Additional Past Medical History:
Hypothyroidism
ADHD
Dyslipidemia
Anxiety depression
History of colorectal cancer s/p chemoradiation followed by colo-anal pull through and diverting loop ileostomy (2020)
Anorectal stenosis s/p proctoplasty (07/04/23)
Full fecal incontinence s/p robotic end sigmoid colostomy (09/07/23)
Allergy History:
lamotrigine [From Lamictal] Allergy (Verified 09/14/23 16:34)
Rash/FEVER
levofloxacin [From Levaquin] Allergy (Verified 09/14/23 16:34)
joint pain
oxaliplatin Allergy (Verified 09/14/23 16:34)
Anaphylaxis
Sulfa (Sulfonamide Antibiotics) Allergy (Verified 09/14/23 16:34)
Rash/FEVER
Medications Reviewed: Yes
Current Antibiotics:
Zosyn d2
Social History
Tobacco: Non-Smoker
Alcohol: None
Drug: None
Family History
Family History: Not Pertinent
Review of Systems
Review of Systems
General: Negative Fever, Chills or Change in Appetite
HEENT: Negative Stiff Neck, Sinus Problems or Headache
Cardiovascular: Negative Chest Pain
Respiratory: Negative Dyspnea or Cough
Gasteroenterology: Negative Nausea or Vomiting
Genital / Urological: Negative Dysuria or Flank Pain
Neurological: Negative Headache or Dizziness
All systems: All other systems were reviewed and were negative
Vital Signs
Temp Pulse Resp BP Pulse Ox
98.3 F 90 17 116/59 98
09/15/23 07:20 09/15/23 07:20 09/15/23 07:20 09/15/23 07:20 09/15/23 07:20
Physical Exam
Physical Exam
Constitutional: No Acute Distress and Comfortable
Eyes: No Conjunctival Hemorrhage and Sclera Anicteric
Cardiovascular: Regular Rate and S1/S2
Pulmonary: Clear
Gastrointestinal: Soft, Non Distended, Normal Bowel Sounds and Other (ostomy with soft stool, extensive erythema from stoma extending to right abdomen/groin/flank; left abdomen erythema receding from marked line. Tissue around stoma is firm . )
Extremities: Negative Edema
Neurological: AO x 3
Lab / Diagnostic Study Results
09/15/23 06:19
09/15/23 06:19
Abs Immat Gran (auto) 0.0 10^3/uL (0-0.05) 09/15/23 06:19
Absolute Neuts (auto) 2.9 10^3/uL (1.4-6.5) 09/15/23 06:19
Absolute Lymphs (auto) 1.1 10^3/uL (1.2-3.4) L 09/15/23 06:19
Absolute Monos (auto) 0.7 10^3/uL (0.1-0.6) H 09/15/23 06:19
Absolute Basos (auto) 0.1 10^3/uL (0-0.2) 09/15/23 06:19
Immature Gran % 0.8 % (0-0.5) H 09/15/23 06:19
Neutrophils % 59.0 % (42.2-75.2) 09/15/23 06:19
Lymphocytes % 21.7 % (20.5-51.1) 09/15/23 06:19
Monocytes % 13.4 % (1.7-9.3) H 09/15/23 06:19
Eosinophils % 4.1 % (0-6) 09/15/23 06:19
Basophils % 1.0 % (0-2) 09/15/23 06:19
Lactic Acid Cancelled 09/14/23 21:30
Assessment / Plan
# Post-op abdominal wall cellulitis.
- Recent robotic end-colostomy 09/07/2023.
- Agree with Zosyn.
- Monitor for clinical improvement. If no improvement, CT a/p.
--- NOTE | 2023-09-15 12:52 | W.PN.SURGUPD ---
Surgical Update
Surgical Update
S/B: Patient who underwent a robotic end colostomy on 09/07/2023 for fecal incontinence after treatment for rectal CA in 2020 now presenting with abdominal wall cellulitis and retraction of stoma. Notes pain improved since presentation.
A:Erythema marked on exam, palpable firmess to abdominal wall to the medial right portion of stoma. Ostomy is still functioning with +stool/flatus in appliance.
R:ID following with us for abx management. Will follow for continued clinical improvement on ABX. Continue regular diet as tolerated at this time. Stoma nurse consulted to follow with us.
--- NOTE | 2023-09-15 14:35 | CM ---
Initial assessment completed with pt at bedside.
Pt is a 72yr old female admitted for cellulitis.
Pt was previously admitted and dc with [facility] for wound care of new colostomy.
Pt lives with her in a 3 story home and 2 steps to enter. Pt has a 2nd floor bedroom but does have 1st level set up available if necessary.
Pt is independent but weak from last admission. Pt does not have DME.
Pt anticipates no additional needs past [facility] of VN services.
PCP; Em Smith
Pharm; [facility]
PLAN; dc home with [facility]
[2023-09-15 15:15] VITALS: BP 107/67
[2023-09-15] MEDS: TYLENOL 1000 MG PO (16:36)
[2023-09-15] MEDS: KLONOPIN 0.5 MG PO (21:48)
[2023-09-15] MEDS: NON-FORMULARY ITEM 8 MG PO (21:48)
[2023-09-15] MEDS: ABILIFY 10 MG PO (21:48)
[2023-09-15 23:00] VITALS: BP 152/75
[2023-09-16] MEDS: ZOSYN 50 IV ×4 (06:13→23:54)
[2023-09-16] MEDS: SYNTHROID 150 MCG PO (06:13)
[2023-09-16] MEDS: KLONOPIN 0.5 MG PO ×2 (06:15→21:22)
[2023-09-16 07:25] VITALS: BP 118/67
[2023-09-16] MEDS: OSCAL CAL 500 1000 MG PO (07:52)
[2023-09-16] MEDS: VITAMIN B-12 1000 MCG PO (07:52)
[2023-09-16] MEDS: HEPARIN 5000 UNITS SC ×2 (07:54→20:44)
[2023-09-16] MEDS: THERAGRAN 1 TABLET PO (07:54)
[2023-09-16] MEDS: CRESTOR 5 MG PO (07:54)
[2023-09-16] MEDS: PROTONIX 40 MG PO (07:54)
[2023-09-16] MEDS: ADDERALL 20 MG PO ×3 (07:56→16:40)
[2023-09-16] MEDS: NON-FORMULARY ITEM 40 MG PO (07:56)
[2023-09-16 08:04] LABS: Blood Urea Nitrogen 9 mg/dl (7-17); Calcium 8.6 mg/dl (8.4-10.2); Carbon Dioxide 24 mmol/L (22-30); Chloride 108 mmol/L (98-107); Estimated Creatinine Clearance 62 ml/min; Glucose 88 mg/dl (70-99); Potassium 3.8 mmol/L (3.5-5.1); Sodium 137 mmol/L (135-145); eGFR 59.86
[2023-09-16] MEDS: ROXICODONE 5 MG PO ×2 (09:50→23:55)
--- NOTE | 2023-09-16 09:59 | W.PN.ID1 ---
Date of Service
Date of Service: September 16, 2023
Today's Communication
Continue Zosyn.
Assessment / Plan
# Post-op abdominal wall cellulitis
- Recent robotic end-colostomy 09/07/2023.
- Cellulitis - stable/no change
- Continue Zosyn d2
- Monitor for clinical improvement. If no improvement, CT a/p.
#Additional Past Medical History:
Hypothyroidism
ADHD
Dyslipidemia
Anxiety depression
History of colorectal cancer s/p chemoradiation followed by colo-anal pull through and diverting loop ileostomy (2020)
Anorectal stenosis s/p proctoplasty (07/04/23)
Full fecal incontinence s/p robotic end sigmoid colostomy (09/07/23)
Chief Complaint
-: Cellulitis
Subjective / Review of Systems
Feels same
Vital Signs / Physical Exam
Vital Signs
Vital Signs
Temp Pulse Resp BP Pulse Ox
98.2 F 82 16 118/67 96
09/16/23 07:25 09/16/23 07:25 09/16/23 07:25 09/16/23 07:25 09/16/23 07:25
Physical Exam
Constitutional: No Acute Distress and Comfortable
Gastrointestinal: Soft, Non Tender, Non Distended and Other (stoma with soft stool, + firmness inferior stoma, erythema extending to right abdomen, groin, flank without crossig marked line)
Neurological: AO x 3
Objective Data
Lab Data
Lab Results
09/15/23 06:19
09/16/23 05:45
Estimated Creat Clear 62 ml/min 09/16/23 05:45
Lactic Acid Cancelled 09/14/23 21:30
Total Bilirubin 0.5 mg/dl (0.2-1.3) 09/15/23 06:19
AST 16 U/L (14-36) 09/15/23 06:19
ALT 18 U/L (0-35) 09/15/23 06:19
Alkaline Phosphatase 76 U/L (38-126) 09/15/23 06:19
Most recent labs reviewed.
--- NOTE | 2023-09-16 11:01 | W.PN.HOSP.TC ---
Today's Communication/Plan
-
wound care
Zosyn
Stop IVF
Assessment / Plan
Assessment / Plan
Physical Exam
General: Well Developed, Well Nourished and No Apparent Distress
HEENT: Normocephalic, Moist mucous membranes and Atraumatic
Respiratory: Clear
Cardiac: S1/S2 and Regular Rhythm; No Murmur or Rub
GI: Soft, Non Tender, Normal Bowel Sounds and not Tender (less erythema around colostomy noted ); No Organomegaly
Musculoskeletal: No Clubbing, No Cyanosis and No Edema
Skin: No Rash
Neuro: Nonfocal/grossly intact
Psych: no agitation
# Abdominal wall cellulitis after colostomy creation for fecal incontinence 1 week prior
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
-erythema with induration around colostomy( mostly lower of the opening). The redness and firmness are less today
- No fevers. No leukocytosis. Normal Lactic acid.
-c/w IV Zosyn
-Continue as needed oxycodone for pain
-Colorectal surgery consulted
Per Dr Coombs: Abdominal wall cellulitis following a colostomy creation, most likely due to retraction of the lower edge of the ostomy. I suspect the retraction is due to the weight of her distal colon/mesentery which could not be divided due
concerns of ischemia to the distal segment. The infection appears superficial. Dr. Coombs explained to her and her that she might require surgery which could involve a local repair, resiting of the stoma, a completion proctectomy, or proximal
fecal diversion.
- Appreciate ID help
# hyponatremia, resolved
# Headache, tension type, resolved with Tylenol.
# Acute kidney injury, resolved. Creatinine on admission 1.2 , now down to 1.0
-s/p IV fluids
#Anxiety/depression
-Continue aripiprazole
-Continue clonazepam
-Continue Trintellix
#ADHD
-Continue Adderall
#Hypothyroidism
-Continue levothyroxine
#Hyperlipidemia
-Continue statin
GERD
-Continue esomeprazole
Full code
DVT prophylaxis�heparin
Regular diet
Total time spent to see the patient, examine the patient on the floor, review data and lab results, discuss treatment plan with patient, ID doctor, nursing staff around 57 minutes.
Anticipated Discharge: 24 - 48 hours
Subjective/Interval History
-
Date of Service: September 16, 2023
No abdominal pain
No sob
No fevers
Objective Data
-
Labs:
Laboratory Results
09/16/23
05:45
Sodium 137
Potassium 3.8
Chloride 108 H
Carbon Dioxide 24
BUN 9
Creatinine 1.0
Glucose 88
Calcium 8.6
Vital Signs:
Vital Signs
Temp Pulse Resp BP Pulse Ox
98.2 F 82 16 118/67 96
09/16/23 07:25 09/16/23 07:25 09/16/23 07:25 09/16/23 07:25 09/16/23 07:25
I&O
09/15/23 09/16/23 09/17/23
06:59 06:59 06:59
Intake Total 2340 / 2340 3510 / 3510
Output Total 300 / 300
Balance 2340 / 2140 3210 / 3210
--- NOTE | 2023-09-16 11:17 | W.PN.CRS1 ---
Today's Communication / Plan
-
Continue abx
Assessment/Plan
-
72 yo patient underwent a robotic end colostomy on 09/07/2023 for fecal incontinence after treatment for rectal CA in 2020 now presenting with abdominal wall cellulitis and retraction of stoma. Suspect the retraction is due to the weight of her
distal colon/mesentery which could not be divided due concerns of ischemia to the distal segment. The infection appears superficial.
Notes pain improved since presentation with less induration present on exam.
--Continue current diet
--enterostomal nurse consulted to evaluate tomorrow
--continue antibiotics
--labs in am
Subjective Data
Subjective Data
Date of Service: September 16, 2023
Patient seen and examined at bedside with Dr. Vincent. Denies n/v. Tolerating diet. Pain present but improving.
Objective Data
-
Vital Signs
Temp Pulse Resp BP Pulse Ox
98.2 F 82 16 118/67 96
09/16/23 07:25 09/16/23 07:25 09/16/23 07:25 09/16/23 07:25 09/16/23 07:25
Intake & Output
09/15/23 09/16/23 09/17/23
06:59 06:59 06:59
Intake Total 2340 / 2340 3510 / 3510
Output Total 300 / 300
Balance 2340 / 2140 3210 / 3210
Intake:
Oral fluids 1440 / 1440 1680 / 1680
IV fluids (Total) 800 / 800 1680 / 1680
IV piggybacks 100 / 100 150 / 150
Output:
Liquid stool amount 300 / 300
Colostomy 300 / 300
Other:
Number of approximated MODERATE 2 2
amounts of urine
Number of approximated LARGE 1 2
amounts of urine
Lab Results
09/15/23 06:19
09/16/23 05:45
Physical Exam
-
General: No Acute Distress
Cardiovascular: Regular Rate & Rhythm
Abdomen: Soft, Tender (to lower abdomen) and Bowel Movement (stool/flatus in ostomy appliance. stoma retracted)
Skin: Other (Erythema present to lower abdmen, still within marked area and not improved. palpable induration slightly improved)
Wound: Skin Erythema and Other (Incisions well approximated with intact glue)
[2023-09-16] MEDS: NSS IV (14:13)
[2023-09-16 14:58] VITALS: BP 120/60
[2023-09-16] MEDS: TYLENOL 1000 MG PO (15:02)
[2023-09-16] MEDS: NON-FORMULARY ITEM 8 MG PO (21:22)
[2023-09-16] MEDS: ABILIFY 10 MG PO (21:22)
[2023-09-16 22:55] VITALS: BP 114/63
[2023-09-17] MEDS: SYNTHROID 150 MCG PO (06:18)
[2023-09-17] MEDS: ZOSYN 50 IV ×4 (06:19→23:03)
[2023-09-17] MEDS: KLONOPIN 0.5 MG PO ×2 (06:19→21:26)
[2023-09-17 07:32] LABS: Hematocrit 30.2 % (37.0-47.0); Hemoglobin 10.2 g/dL (12.0-16.0); Mean Corp Hgb Conc. 33.8 g/dL (33.0-37.0); Mean Corpuscular Hgb 30.7 pg (27.0-31.0); Mean Platelet Volume 9.7 fL (7.4-10.4); Platelet Count 361 10^3/uL (130-400); Red Blood Cell Count 3.32 10^6/uL (4.20-5.40); Red Cell Dist. Width 12.4 % (11.5-14.5); White Blood Cell Count 4.7 10^3/uL (4.8-10.8)
[2023-09-17 07:33] LABS: Blood Urea Nitrogen 6 mg/dl (7-17); Calcium 8.9 mg/dl (8.4-10.2); Carbon Dioxide 27 mmol/L (22-30); Chloride 106 mmol/L (98-107); Estimated Creatinine Clearance 69 ml/min; Glucose 82 mg/dl (70-99); Potassium 3.9 mmol/L (3.5-5.1); Sodium 136 mmol/L (135-145); eGFR > 60.00
[2023-09-17 07:58] VITALS: BP 112/68
[2023-09-17] MEDS: VITAMIN B-12 1000 MCG PO (08:09)
[2023-09-17] MEDS: PROTONIX 40 MG PO (08:09)
[2023-09-17] MEDS: HEPARIN 5000 UNITS SC ×2 (08:09→19:45)
[2023-09-17] MEDS: OSCAL CAL 500 1000 MG PO (08:09)
[2023-09-17] MEDS: CRESTOR 5 MG PO (08:09)
[2023-09-17] MEDS: ADDERALL 20 MG PO ×3 (08:09→17:16)
[2023-09-17] MEDS: THERAGRAN 1 TABLET PO (08:09)
[2023-09-17] MEDS: NON-FORMULARY ITEM 40 MG PO (08:10)
--- NOTE | 2023-09-17 08:45 | VNURNOTE ---
Chart reviewed. Patient is current with [facility] nurses. Will continue to follow hospital course.
--- NOTE | 2023-09-17 09:18 | W.PN.HOSP.TC ---
Today's Communication/Plan
-
continue IV Abx per ID and follow CRS/wound care recs
Assessment / Plan
Assessment / Plan
Assessment:
Abdominal wall cellulitis after colostomy creation for fecal incontinence 1 week prior
- areas demarcated by marker
- continue Zosyn per ID, day 3
- continue pain control
- follow CRS service recs
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
- follow CRS service recs
hyponatremia, resolved
Headache, tension type, resolved with Tylenol.
Acute kidney injury, resolved. Creatinine on admission 1.2 , now down to 1.0
- s/p IV fluids
Anxiety/depression
- continue aripiprazole
- continue clonazepam
- continue Trintellix
ADHD
- continue Adderall
Hypothyroidism
- continue levothyroxine
Hyperlipidemia
- continue statin
GERD
- continue esomeprazole
DVT ppx: SC heparin
Code: Full
Anticipated Discharge: 24 - 48 hours
Subjective/Interval History
-
Date of Service: September 17, 2023
reports some redness and itching about the cellulitis space last evening which improved with pain meds
feels its less red/swollen today, no itching
being evaluated with wound care service currently for bag exchange
Objective Data
-
Labs:
Laboratory Results
09/17/23
05:03
WBC 4.7 L
Hgb 10.2 L
Hct 30.2 L
Plt Count 361 D
Sodium 136
Potassium 3.9
Chloride 106
Carbon Dioxide 27
BUN 6 L
Creatinine 0.9
Glucose 82
Calcium 8.9
Vital Signs:
Vital Signs
Temp Pulse Resp BP Pulse Ox
98.0 F 80 17 112/68 97
09/17/23 07:58 09/17/23 07:58 09/17/23 07:58 09/17/23 07:58 09/17/23 07:58
I&O
09/16/23 09/17/23 09/18/23
06:59 06:59 06:59
Intake Total 3510 / 3510 720 / 720 580 / 580
Output Total 300 / 300
Balance 3210 / 3210 720 / 720 580 / 580
Physical Exam
-
General: No Apparent Distress
HEENT: Normocephalic and Atraumatic
Respiratory: Negative Wheezes or Rales
Cardiac: Regular Rhythm and S1/S2
GI: Ostomy (paraostomy tender, golf-ball induration, surrounding cellulitis)
Genito-urinary: No Costovertebral Tender
Musculoskeletal: No Edema
Neuro: AO x 3
Hematologic / Lymphatic: No Lymphadenopathy
Psych: Calm
Data Reviewed
-
Total Time Spent with Patient (in minutes): 47
Labs: Labs Reviewed by me
--- NOTE | 2023-09-17 09:32 | WOUNDNOTE ---
COLOSTOMY AND ABDOMEN
--- NOTE | 2023-09-17 09:33 | WOUNDNOTE ---
BRYCE RN NOTE: Patient admitted with abdominal wall cellulitis. Recently discharged s/p colon resection and end Colostomy, patient known to service. Has retracted stoma, pink with peristomal skin excoriation from leakage, see photos. Assessed patient
with Dr. Porter and Dr. Vincent, cellulitis is improving per MD's. Today changed appliance, last changed Sep 12, 4 day wear time. Using 2 3/4' Convex wafer [place] 2 piece with belt. When removed wafer, stool had started to leak under
wafer causing skin breakdown. Applied stoma powder and skin prep after cleaning with warm water. Flattened 2' Ronald seal around stoma, Convex wafer, pouch and belt. Recommend next change use 2 1/4' convex wafer, additional convex wafer left at
bedside. Will order supplies from [facility] and provide additional Convex wafers. Patient has own 2 3/4' supplies at bedside. Will update care plan and follow as needed. Recommend continue VN upon discharge.
[2023-09-17] MEDS: ROXICODONE 5 MG PO (10:11)
--- NOTE | 2023-09-17 10:16 | CM ---
Post op colostomy last admission.
[facility] resumption placed by Rachana troncoso VFidencio .
Wound care for colostomy care documented by [facility].
Family will drive her home.
PLAN Home with [facility]
--- NOTE | 2023-09-17 10:22 | W.PN.CRS1 ---
Today's Communication / Plan
-
Continue antibiotics per ID
Assessment/Plan
-
Abdominal wall cellulitis.
1. Seems to be slightly improved. Continue antibiotics per ID.
2. Ostomy is functioning and viable. It is a bit retracted.
3. Holding on option of surgical intervention.
4. Will continue to follow closely.
Subjective Data
Subjective Data
Date of Service: September 17, 2023
No new complaints.
Objective Data
-
Vital Signs
Temp Pulse Resp BP Pulse Ox
98.0 F 80 17 112/68 97
09/17/23 07:58 09/17/23 07:58 09/17/23 07:58 09/17/23 07:58 09/17/23 07:58
Intake & Output
09/16/23 09/17/23 09/18/23
06:59 06:59 06:59
Intake Total 3510 / 3510 720 / 720 580 / 580
Output Total 300 / 300
Balance 3210 / 3210 720 / 720 580 / 580
Intake:
Oral fluids 1680 / 1680 720 / 720 480 / 480
IV fluids (Total) 1680 / 1680
IV piggybacks 150 / 150 100 / 100
Output:
Liquid stool amount 300 / 300
Colostomy 300 / 300
Other:
Number of approximated MODERATE 2 3 3
amounts of urine
Number of approximated LARGE 2
amounts of urine
Lab Results
09/17/23 05:03
09/17/23 05:03
Physical Exam
-
General: No Acute Distress
Chest: Clear
Cardiovascular: Regular Rate & Rhythm
Abdomen: Non Distended and Other (Stoma appliance changed at bedside with ET nursing. Stoma is viable but retracted. There is some skin irritation around it. Abdominal wall erythema still present but perhaps somewhat improved.)
--- NOTE | 2023-09-17 11:53 | W.PN.ID1 ---
Date of Service
Date of Service: September 17, 2023
Today's Communication
Continue Zosyn.
Assessment / Plan
# Post-op abdominal wall cellulitis - improving
- Recent robotic end-colostomy 09/07/2023.
- Cellulitis - stable/no change
- Continue Zosyn d3
- Follow clinically.
#Additional Past Medical History:
Hypothyroidism
ADHD
Dyslipidemia
Anxiety depression
History of colorectal cancer s/p chemoradiation followed by colo-anal pull through and diverting loop ileostomy (2020)
Anorectal stenosis s/p proctoplasty (07/04/23)
Full fecal incontinence s/p robotic end sigmoid colostomy (09/07/23)
Chief Complaint
-: Cellulitis
Subjective / Review of Systems
Last night had right side abd pain and worsening redness, better today.
Vital Signs / Physical Exam
Vital Signs
Vital Signs
Temp Pulse Resp BP Pulse Ox
98.0 F 80 17 112/68 97
09/17/23 07:58 09/17/23 07:58 09/17/23 07:58 09/17/23 07:58 09/17/23 07:58
Physical Exam
Constitutional: No Acute Distress
Gastrointestinal: Soft, Non Tender, Normal Bowel Sounds and Other (Right side of abdomen decreasing erythema, receding from marked line. )
Objective Data
Lab Data
Lab Results
09/17/23 05:03
09/17/23 05:03
Estimated Creat Clear 69 ml/min 09/17/23 05:03
Lactic Acid Cancelled 09/14/23 21:30
Total Bilirubin 0.5 mg/dl (0.2-1.3) 09/15/23 06:19
AST 16 U/L (14-36) 09/15/23 06:19
ALT 18 U/L (0-35) 09/15/23 06:19
Alkaline Phosphatase 76 U/L (38-126) 09/15/23 06:19
Most recent labs reviewed.
[2023-09-17 15:14] VITALS: BP 106/54
[2023-09-17] MEDS: ABILIFY 10 MG PO (21:26)
[2023-09-17] MEDS: NON-FORMULARY ITEM 8 MG PO (21:27)
[2023-09-17 23:10] VITALS: BP 115/72
[2023-09-18] MEDS: COMPAZINE 5 MG IV (01:36)
[2023-09-18] MEDS: SYNTHROID 150 MCG PO (06:14)
[2023-09-18] MEDS: ZOSYN 50 IV ×2 (06:14→12:04)
[2023-09-18 06:30] LABS: Hematocrit 29.9 % (37.0-47.0); Hemoglobin 10.4 g/dL (12.0-16.0); Mean Corp Hgb Conc. 34.8 g/dL (33.0-37.0); Mean Platelet Volume 9.8 fL (7.4-10.4); Platelet Count 363 10^3/uL (130-400); Red Blood Cell Count 3.25 10^6/uL (4.20-5.40); Red Cell Dist. Width 12.1 % (11.5-14.5); White Blood Cell Count 4.8 10^3/uL (4.8-10.8)
[2023-09-18 06:50] LABS: Blood Urea Nitrogen 6 mg/dl (7-17); Carbon Dioxide 28 mmol/L (22-30); Chloride 105 mmol/L (98-107); Estimated Creatinine Clearance 69 ml/min; Glucose 91 mg/dl (70-99); Sodium 136 mmol/L (135-145); eGFR > 60.00
[2023-09-18 07:00] VITALS: BP 114/64
[2023-09-18] MEDS: VITAMIN B-12 1000 MCG PO (07:59)
[2023-09-18] MEDS: OSCAL CAL 500 1000 MG PO (07:59)
[2023-09-18] MEDS: THERAGRAN 1 TABLET PO (07:59)
[2023-09-18] MEDS: PROTONIX 40 MG PO (07:59)
[2023-09-18] MEDS: ADDERALL 20 MG PO ×2 (07:59→12:04)
[2023-09-18] MEDS: CRESTOR 5 MG PO (07:59)
[2023-09-18] MEDS: HEPARIN 5000 UNITS SC (08:00)
[2023-09-18] MEDS: NON-FORMULARY ITEM 40 MG PO (08:02)
[2023-09-18] MEDS: ROXICODONE 5 MG PO (10:46)
--- NOTE | 2023-09-18 11:18 | W.PN.HOSP.TC ---
Today's Communication/Plan
-
DC if cleared by ID/CRS services
Assessment / Plan
Assessment / Plan
Assessment:
Abdominal wall cellulitis after colostomy creation for fecal incontinence 1 week prior
- areas demarcated by marker; no progression beyond border
- continue Zosyn per ID, day 4
- continue pain control
- follow CRS recs and has f/u next week
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
- follow CRS recs and has f/u next week
hyponatremia, resolved
Headache, tension type, resolved with Tylenol.
Acute kidney injury, resolved. Creatinine on admission 1.2 , now down to 1.0
- s/p IV fluids
Anxiety/depression
- continue aripiprazole
- continue clonazepam
- continue Trintellix
ADHD
- continue Adderall
Hypothyroidism
- continue levothyroxine
Hyperlipidemia
- continue statin
GERD
- continue esomeprazole
DVT ppx: SC heparin
Code: Full
Anticipated Discharge: Within 24 hours
Subjective/Interval History
-
Date of Service: September 18, 2023
redness and cellulitis pain improving
Objective Data
-
Labs:
Laboratory Results
09/18/23
05:07
WBC 4.8
Hgb 10.4 L
Hct 29.9 L
Plt Count 363
Sodium 136
Potassium 4.0
Chloride 105
Carbon Dioxide 28
BUN 6 L
Creatinine 0.9
Glucose 91
Calcium 9.0
Vital Signs:
Vital Signs
Temp Pulse Resp BP Pulse Ox
98.0 F 93 16 114/64 95
09/18/23 07:00 09/18/23 07:00 09/18/23 07:00 09/18/23 07:00 09/18/23 09:56
I&O
09/17/23 09/18/23 09/19/23
06:59 06:59 06:59
Intake Total 720 / 720 1260 / 1260
Balance 720 / 720 1260 / 1260
Physical Exam
-
General: No Apparent Distress
HEENT: Normocephalic and Atraumatic
Respiratory: Negative Wheezes
Cardiac: Regular Rhythm and S1/S2
GI: Soft
Musculoskeletal: No Edema
Skin: Other (abd wall cellulitis improving, less erythema/edema)
Neuro: AO x 3
Psych: Calm
Data Reviewed
-
Total Time Spent with Patient (in minutes): 44
Labs: Labs Reviewed by me
--- NOTE | 2023-09-18 12:11 | W.PN.CRS1 ---
Today's Communication / Plan
-
Continue antibiotics per ID
Ok for discharge from a surgical standpoint.
Assessment/Plan
-
Abdominal wall cellulitis.
1. Improved. Continue antibiotics per ID.
2. Ostomy is functioning and viable and is able to be pouched.
3. No plans for surgery.
Subjective Data
Subjective Data
Date of Service: September 18, 2023
She feels better and has no pain. She is tolerating a regular diet and pouching the stoma.
Objective Data
-
Vital Signs
Temp Pulse Resp BP Pulse Ox
98.0 F 93 16 114/64 95
09/18/23 07:00 09/18/23 07:00 09/18/23 07:00 09/18/23 07:00 09/18/23 09:56
Intake & Output
09/17/23 09/18/23 09/19/23
06:59 06:59 06:59
Intake Total 720 / 720 1260 / 1260
Balance 720 / 720 1260 / 1260
Intake:
Oral fluids 720 / 720 1110 / 1110
IV piggybacks 150 / 150
Other:
Number of approximated MODERATE 3 2
amounts of urine
Lab Results
09/18/23 05:07
09/18/23 05:07
Physical Exam
-
General: No Acute Distress
Abdomen: Soft, Non Distended and Other (mild erythema of the lower abdominal wall much improved since admission. The induration near the stoma is also much improved.)
--- NOTE | 2023-09-18 12:35 | W.PN.ID1 ---
Date of Service
Date of Service: September 18, 2023
Today's Communication
Transition to Augmentin 875mg po bid through 09/28/23
Assessment / Plan
# Post-op abdominal wall cellulitis - continues to improve
# Adverse rxn/Allergy to levofloxacin (joint pains), sulfa (rash)
- Recent robotic end-colostomy 09/07/2023.
- Transition Zosyn to Augmentin 875mg po bid through 09/28/23
#Additional Past Medical History:
Hypothyroidism
ADHD
Dyslipidemia
Anxiety depression
History of colorectal cancer s/p chemoradiation followed by colo-anal pull through and diverting loop ileostomy (2020)
Anorectal stenosis s/p proctoplasty (07/04/23)
Full fecal incontinence s/p robotic end sigmoid colostomy (09/07/23)
Chief Complaint
-: Cellulitis
Subjective / Review of Systems
Abdomen is feeling improved.
Vital Signs / Physical Exam
Vital Signs
Vital Signs
Temp Pulse Resp BP Pulse Ox
98.0 F 93 16 114/64 95
09/18/23 07:00 09/18/23 07:00 09/18/23 07:00 09/18/23 07:00 09/18/23 09:56
Physical Exam
Constitutional: No Acute Distress
Pulmonary: Clear
Gastrointestinal: Soft, Non Tender, Non Distended and Other (right abdomen erythema decreasing and receding from marked line)
Objective Data
Lab Data
Lab Results
09/18/23 05:07
09/18/23 05:07
Estimated Creat Clear 69 ml/min 09/18/23 05:07
Lactic Acid Cancelled 09/14/23 21:30
Total Bilirubin 0.5 mg/dl (0.2-1.3) 09/15/23 06:19
AST 16 U/L (14-36) 09/15/23 06:19
ALT 18 U/L (0-35) 09/15/23 06:19
Alkaline Phosphatase 76 U/L (38-126) 09/15/23 06:19
Most recent labs reviewed.
Care Review
Plan reviewed with: Physician (Dr. Porter)
--- NOTE | 2023-09-18 13:12 | W.DS.TRANS ---
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
-
Discharge Instructions:
Discharge Diagnosis/Procedures Abdominal wall cellulitis
Diet Regular
Activity As tolerated
Bathing Restrictions None
Other Services VN
Instructions:
Stand-Alone Forms:
Changes to Home Medications: No
Discharge Medications:
DC Medications w/original date entered in [place]
coenzyme Q10 100 mg capsule (CoQ-10) 200 mg PO DAILY Supplement 06/13/22
diphenoxylate-atropine 2.5 mg-0.025 mg tablet (Lomotil) 1 tab PO QIDPRN PRN diarrhea 06/13/22
esomeprazole magnesium 20 mg capsule,delayed release (Nexium) 20 mg PO DAILY Gastrointestinal Issue 06/13/22
fluticasone propionate 50 mcg/actuation nasal spray,suspension 2 spray intranasal DAILYPRN PRN allergies 06/13/22
levothyroxine 150 mcg tablet 150 mcg PO DAILY Thyroid 06/13/22
loratadine 10 mg tablet (Claritin) 10 mg PO DAILYPRN PRN allergies 06/13/22
ramelteon 8 mg tablet (Rozerem) 8 mg PO HS Mental Health 06/13/22
vortioxetine 20 mg tablet (Trintellix) 40 mg PO DAILY Mental Health 06/13/22
clonazepam 1 mg tablet (Klonopin) 0.5 mg PO HS Sleep 08/15/22
loperamide 2 mg capsule 2 mg PO Q4HPRN PRN diarrhea 08/15/22
multivitamin 1 tab PO DAILY Supplement 08/15/22
diclofenac sodium 1 % topical gel 2 g topical QIDPRN PRN arthritis pain 06/27/23
rosuvastatin 5 mg tablet 5 mg PO DAILY High Cholesterol 07/04/23
aripiprazole 10 mg tablet (Abilify) 10 mg PO HS Mental Health/Anxiety 08/27/23
calcium carbonate (Calcium 600) 1,200 mg PO DAILY Supplement 09/14/23
clonazepam 1 mg tablet 0.5 mg PO DAILYPRN PRN anxiety 09/14/23
cyanocobalamin (vitamin B-12) 1,000 mcg tablet 1,000 mcg PO DAILY Supplement 09/14/23
dextroamphetamine-amphetamine 20 mg tablet 20 mg PO TID ADD 09/14/23
oxycodone 5 mg tablet 5 mg PO Q8HPRN PRN moderate pain 09/14/23
amoxicillin 875 mg-potassium clavulanate 125 mg tablet 1 tab PO BID 10 days #20 tabs 09/18/23
Home Medication Changes
Pending Results: No
Total time spent discharging patient (in min): 42
--- NOTE | 2023-09-18 14:32 | CM ---
entered ordered discharge.
Pt said she has colostomy supplies at home
[facility] resumption accepted.
Afshin will drive her home.
PLAN Home with [facility]
== END 2023-09-18 13:37 | disposition home health service (06) | DRG 863 ==
LOC: 3 WEST ACU 18:48
PROVIDERS: Internal Medicine; ADMITTING PHYSICIAN Hospitalist; ATTENDING PHYSICIAN Internal Medicine; CONSULT PHYSICIAN Internal Medicine Infectious Disease; CONSULT PHYSICIAN Surgery; EMERGENCY PHYSICIAN Emergency Medicine; FAMILY PHYSICIAN Nurse Practitioner Adult Health
DX: T81.49XA Infection following a procedure, other surgical site, initial encounter (principal); L03.311 Cellulitis of abdominal wall; E87.1 Hypo-osmolality and hyponatremia; N17.9 Acute kidney failure, unspecified; F32.A Depression, unspecified; E03.9 Hypothyroidism, unspecified; F41.9 Anxiety disorder, unspecified; F90.9 Attention-deficit hyperactivity disorder, unspecified type; E78.5 Hyperlipidemia, unspecified; K21.9 Gastro-esophageal reflux disease without esophagitis; G44.209 Tension-type headache, unspecified, not intractable; M19.90 Unspecified osteoarthritis, unspecified site; Z79.890 Hormone replacement therapy; Z79.899 Other long term (current) drug therapy; Z93.3 Colostomy status; Z85.048 Personal history of other malignant neoplasm of rectum, rectosigmoid junction, and anus; Z92.21 Personal history of antineoplastic chemotherapy; Z92.3 Personal history of irradiation; Z88.1 Allergy status to other antibiotic agents; Z88.2 Allergy status to sulfonamides; Z88.8 Allergy status to other drugs, medicaments and biological substances
CPT/HCPCS: 80048; 80053; 83605; 85025; 85027; 96365; 99284

== ENCOUNTER → 2023-09-20 11:45 | Outpatient (REF) | payer OTHER, SELFPAY | LOC: RAD 11:45 | PROVIDERS: ATTENDING PHYSICIAN Nurse Practitioner Family | DX: R22.31 Localized swelling, mass and lump, right upper limb (principal) | CPT/HCPCS: 93971 ==

== ENCOUNTER → 2023-11-08 10:18 | Outpatient (REF) | payer OTHER, SELFPAY | LOC: WDC 10:18 | PROVIDERS: ATTENDING PHYSICIAN Nurse Practitioner Adult Health | DX: Z12.31 Encounter for screening mammogram for malignant neoplasm of breast (principal) | CPT/HCPCS: 77063; 77067 ==

== ENCOUNTER → 2023-11-14 11:42 | Outpatient (REF) | payer OTHER, SELFPAY ==
[2023-11-14 14:13] LABS: % Basophils 1.3 % (0-2); % Eosinophils 2.2 % (0-6); % Immature Granulocytes 0.4 % (0-0.5); % Monocytes 9.1 % (1.7-9.3); Absolute Basophils 0.1 10^3/uL (0-0.2); Absolute Eosinophils 0.1 10^3/uL (0-0.7); Absolute Lymphocytes 1.3 10^3/uL (1.2-3.4); Absolute Monocytes 0.5 10^3/uL (0.1-0.6); Absolute Neutrophils 3.5 10^3/uL (1.4-6.5); Hematocrit 38.4 % (37.0-47.0); Hemoglobin 12.6 g/dL (12.0-16.0); Mean Corp Hgb Conc. 32.8 g/dL (33.0-37.0); Mean Corpuscular Hgb 29.8 pg (27.0-31.0); Mean Corpuscular Volume 90.8 fL (81.0-99.0); Mean Platelet Volume 10.1 fL (7.4-10.4); Nucleated Red Blood Cells % 0 %; Platelet Count 316 10^3/uL (130-400); Red Blood Cell Count 4.23 10^6/uL (4.20-5.40); Red Cell Dist. Width 12.6 % (11.5-14.5); White Blood Cell Count 5.5 10^3/uL (4.8-10.8)
[2023-11-14 14:23] LABS: ALT (SGPT) 29 U/L (0-35); AST (SGOT) 26 U/L (14-36); Albumin 4.3 g/dl (3.5-5.0); Alkaline Phosphatase 69 U/L (38-126); Total Bilirubin 0.4 mg/dl (0.2-1.3); Total Protein 7.4 g/dl (6.3-8.2)
[2023-11-14 14:57] LABS: CEA 0.76 ng/ml
[2023-11-14 15:34] LABS: Folate 9.4 ng/ml (2.76-20); Vitamin B12 383 pg/ml (239-931)
== END ==
LOC: REG 11:42
PROVIDERS: ATTENDING PHYSICIAN Internal Medicine Hematology & Oncology; FAMILY PHYSICIAN Nurse Practitioner Adult Health
DX: C20 Malignant neoplasm of rectum (principal)
CPT/HCPCS: 36415; 80076; 82378; 82607; 82746; 85025

== ENCOUNTER 2023-11-23 06:02 | Inpatient (IN) | payer OTHER, SELFPAY ==
[2023-11-16 08:47] VITALS: BMI 30.9
[2023-11-16 11:00] LABS: Hematocrit 37.8 % (37.0-47.0); Hemoglobin 12.5 g/dL (12.0-16.0); Mean Corp Hgb Conc. 33.1 g/dL (33.0-37.0); Mean Corpuscular Hgb 29.6 pg (27.0-31.0); Mean Corpuscular Volume 89.4 fL (81.0-99.0); Mean Platelet Volume 9.7 fL (7.4-10.4); Platelet Count 346 10^3/uL (130-400); Red Blood Cell Count 4.23 10^6/uL (4.20-5.40); Red Cell Dist. Width 12.3 % (11.5-14.5); White Blood Cell Count 5.5 10^3/uL (4.8-10.8)
[2023-11-16 11:28] LABS: Glycohemoglobin (HgbA1c) 5.5 % (4.0-5.6)
[2023-11-16 11:32] LABS: ALT (SGPT) 30 U/L (0-35); AST (SGOT) 28 U/L (14-36); Albumin 4.3 g/dl (3.5-5.0); Alkaline Phosphatase 83 U/L (38-126); Blood Urea Nitrogen 12 mg/dl (7-17); Calcium 9.6 mg/dl (8.4-10.2); Carbon Dioxide 22 mmol/L (22-30); Chloride 103 mmol/L (98-107); Estimated Creatinine Clearance 77 ml/min; Glucose 108 mg/dl (70-99); Potassium 4.1 mmol/L (3.5-5.1); Sodium 138 mmol/L (135-145); Total Bilirubin 0.6 mg/dl (0.2-1.3); Total Protein 7.2 g/dl (6.3-8.2); eGFR > 60.00
[2023-11-23] VITALS (21 sets, daily range): BP systolic 110–154; BP diastolic 65–82; BMI 30.9
[2023-11-23] MEDS: TYLENOL 1000 MG PO (06:23)
[2023-11-23] MEDS: HEPARIN 5000 UNITS SC (06:23)
[2023-11-23] MEDS: ENTEREG 12 MG PO (06:23)
--- NOTE | 2023-11-23 10:54 | W.IMMPOSTOP ---
Surgical Immed Post Op Note
-
Primary Surgeon: Papito Coombs MD
Urologist: Kevin Slater MD
Material Combiner: YURI Mann
Pre-op Diagnosis: Retracted colostomy
Post-op Diagnosis: Same
Procedure Performed: Robotic colostomy revision
Cystoscopy with bilateral ureteral stents
Anesthesia Type: GET
Specimen / Cultures: None
Estimated Blood Loss: 15cc
Complications: None
Operative Findings: New end colostomy resited in the upper abdomen
The distal segment was not ischemic
Patient's updated
[2023-11-23] MEDS: DILAUDID 0.5 MG IV ×3 (11:00→17:30)
[2023-11-23] MEDS: ZOFRAN 4 MG IV (12:07)
[2023-11-23] MEDS: TORADOL 15 MG IV ×3 (13:37→23:10)
[2023-11-23] MEDS: NORMOSOL-R/PLASMALYTE-A 1000 IV (14:30)
[2023-11-23] MEDS: TYLENOL PO (14:37)
[2023-11-23] MEDS: TYLENOL 650 MG PO ×3 (16:39→23:11)
--- NOTE | 2023-11-23 17:31 | WOUNDNOTE ---
[facility] RN note: Patient s/p robotic colostomy revision. Patient's stoma oval shaped, pink, distal section of stoma appears flush to skin where os of stoma appears to be and mid/upper part of stoma budded. Appliance intact. No stool in pouch. Colostomy
appliances given (Markos wafer # [id number], Ronald seal, stoma paste and Markos pouch #[id number]). Patient has Markos soft convex wafers # [id number] at home should she need convexity. Patient has been independent in her ostomy care using Markos wafer
# [id number] with stoma paste with drainage pouch. Patient's also knowledgeable in patient's colostomy appliance changes. Will follow early next week if still here.
[2023-11-23] MEDS: ADDERALL PO (18:34)
[2023-11-23] MEDS: ROXICODONE 5 MG PO (21:43)
[2023-11-23] MEDS: NON-FORMULARY ITEM PO (22:59)
[2023-11-23] MEDS: KLONOPIN PO (22:59)
[2023-11-23] MEDS: ABILIFY PO (22:59)
[2023-11-24] MEDS: NORMOSOL-R/PLASMALYTE-A 1000 IV ×2 (00:33→09:38)
[2023-11-24 03:27] VITALS: BP 139/79
[2023-11-24] MEDS: TYLENOL PO (04:19)
[2023-11-24] MEDS: DILAUDID 0.5 MG IV ×2 (04:35→09:39)
[2023-11-24] MEDS: SYNTHROID 150 MCG PO (05:17)
[2023-11-24] MEDS: TORADOL 15 MG IV ×3 (05:17→17:57)
[2023-11-24 05:22] LABS: % Basophils 0.2 % (0-2); % Immature Granulocytes 0.5 % (0-0.5); % Lymphocytes 9.2 % (20.5-51.1); % Monocytes 5.9 % (1.7-9.3); % Neutrophils 84.2 % (42.2-75.2); Absolute Immature Granulocytes 0.1 10^3/uL (0-0.05); Absolute Lymphocytes 0.9 10^3/uL (1.2-3.4); Absolute Monocytes 0.6 10^3/uL (0.1-0.6); Absolute Neutrophils 8.6 10^3/uL (1.4-6.5); Hematocrit 33.6 % (37.0-47.0); Hemoglobin 11.2 g/dL (12.0-16.0); Mean Corp Hgb Conc. 33.3 g/dL (33.0-37.0); Mean Corpuscular Hgb 29.7 pg (27.0-31.0); Mean Corpuscular Volume 89.1 fL (81.0-99.0); Mean Platelet Volume 9.6 fL (7.4-10.4); Nucleated Red Blood Cells % 0 %; Platelet Count 305 10^3/uL (130-400); Red Blood Cell Count 3.77 10^6/uL (4.20-5.40); Red Cell Dist. Width 12.6 % (11.5-14.5); White Blood Cell Count 10.2 10^3/uL (4.8-10.8)
[2023-11-24 05:46] LABS: Blood Urea Nitrogen 15 mg/dl (7-17); Calcium 9.4 mg/dl (8.4-10.2); Carbon Dioxide 22 mmol/L (22-30); Chloride 101 mmol/L (98-107); Estimated Creatinine Clearance 61 ml/min; Glucose 117 mg/dl (70-99); Potassium 4.6 mmol/L (3.5-5.1); Sodium 135 mmol/L (135-145); eGFR 59.49
[2023-11-24 06:00] VITALS: BMI 30.8
[2023-11-24 07:54] VITALS: BP 124/64
[2023-11-24] MEDS: PROTONIX 20 MG PO (09:29)
[2023-11-24] MEDS: ADDERALL 20 MG PO ×3 (09:29→16:16)
[2023-11-24] MEDS: TYLENOL 650 MG PO ×4 (09:32→19:57)
[2023-11-24] MEDS: CRESTOR 40 MG PO (09:33)
[2023-11-24] MEDS: ENTEREG 12 MG PO ×2 (09:33→19:57)
[2023-11-24] MEDS: NON-FORMULARY ITEM 40 MG PO (09:38)
[2023-11-24 11:22] VITALS: BP 123/59
--- NOTE | 2023-11-24 11:48 | W.PN.GS2 ---
Addendum entered and electronically signed by Fahad Botello MD 11/24/23 15:43:
I saw and examined the patient.
The Prospect Manager's note was reviewed and I agree with the note.
Comment: Pain controlled, amarilis CLD, stoma producing liquid stool and flatus. Plan for void trial. Adv to FLD.
Original Note:
Today's Communication / Plan
-
Advancing diet
Assessment / Plan
-
73 yo female presenting for management of retracted colostomy now POD #1 Robotic colostomy revision and creation of new end colostomy
AFVSS, mild tachycardia overnight, now resolved
Second stent removed today
Labs stable
Beginning to have bowel function from stoma
--Advance to FLD
--Analgesics scheduled and prn
--Voiding trial in AM
--Hospitalist following with us for medical management
--SCD's and Lovenox 40mg SQ for VTE ppx
--OOB ambulate/IS while awake
Subjective Data
-
Date of Service: November 24, 2023
Patient seen and examined at bedside. Denies n/v. Some pain overnight, but better now. Notes soreness with movement. Passing flatus via stoma.
Objective Data
-
Intake and Output
11/23/23 11/24/23 11/25/23
06:59 06:59 06:59
Intake Total 2620 / 2620
Output Total 720 / 720
Balance 1900 / 1900
Intake:
Oral fluids 960 / 960
IV fluids (Total) 1660 / 1660
normosol 350 / 350
Output:
Urine, Jernigan 720 / 720
Vital Signs
Temp Pulse Resp BP Pulse Ox
98.3 F 85 18 123/59 93
11/24/23 11:22 11/24/23 11:22 11/24/23 11:22 11/24/23 11:22 11/24/23 11:22
Lab Results
11/24/23 04:55
11/24/23 04:55
Calcium 9.4 mg/dl (8.4-10.2) 11/24/23 04:55
Total Bilirubin 0.6 mg/dl (0.2-1.3) 11/16/23 08:39
AST 28 U/L (14-36) 11/16/23 08:39
ALT 30 U/L (0-35) 11/16/23 08:39
Alkaline Phosphatase 83 U/L (38-126) 11/16/23 08:39
Total Protein 7.2 g/dl (6.3-8.2) 11/16/23 08:39
Albumin 4.3 g/dl (3.5-5.0) 11/16/23 08:39
Physical Exam
-
NAD AAOx3
ABD: Soft, nondistended, mild tenderness palpation at incision sites. Incisions with glue dressings. Left-sided colostomy with pink mucosa, flatus and liquid stool noted in appliance
Jernigan with clear, yellow urine with some blood tinged sediment. Stent present and removed
--- NOTE | 2023-11-24 13:25 | CM ---
Patient seen at bedside. Patient confirmed that she lives with her in a 2 story home with no DME at home. Patient PA is Em Mininger and she uses the [facility] in [place]. Patient stated that she is independent of ADL's and IADL's. Patient
plan is for home with [facility]N from [facility] if recommended. CM will continue to follow for discharge planning needs.
Plan; home with no needs vs home with VN
[2023-11-24 16:05] VITALS: BP 141/76
[2023-11-24] MEDS: LOVENOX 40 MG SC (16:17)
[2023-11-24] MEDS: ROXICODONE 5 MG PO (16:29)
[2023-11-24] MEDS: ABILIFY 10 MG PO (21:29)
[2023-11-24] MEDS: KLONOPIN 0.5 MG PO (21:29)
[2023-11-24] MEDS: NON-FORMULARY ITEM 1 MG PO (21:34)
[2023-11-24 22:50] VITALS: BP 136/76
[2023-11-25] MEDS: TYLENOL 650 MG PO ×6 (00:47→23:23)
[2023-11-25] MEDS: TORADOL 15 MG IV ×5 (00:47→23:24)
[2023-11-25] MEDS: ROXICODONE 5 MG PO ×3 (04:43→16:35)
[2023-11-25] MEDS: SYNTHROID 150 MCG PO (04:43)
[2023-11-25 06:42] LABS: Hematocrit 33.1 % (37.0-47.0); Hemoglobin 11.1 g/dL (12.0-16.0); Mean Corp Hgb Conc. 33.5 g/dL (33.0-37.0); Mean Corpuscular Hgb 31.2 pg (27.0-31.0); Mean Platelet Volume 9.8 fL (7.4-10.4); Platelet Count 257 10^3/uL (130-400); Red Blood Cell Count 3.56 10^6/uL (4.20-5.40); Red Cell Dist. Width 12.4 % (11.5-14.5); White Blood Cell Count 6.2 10^3/uL (4.8-10.8)
[2023-11-25 07:05] LABS: Blood Urea Nitrogen 11 mg/dl (7-17); Carbon Dioxide 28 mmol/L (22-30); Chloride 102 mmol/L (98-107); Estimated Creatinine Clearance 68 ml/min; Glucose 83 mg/dl (70-99); Potassium 4.3 mmol/L (3.5-5.1); Sodium 139 mmol/L (135-145); eGFR > 60.00
[2023-11-25 07:32] VITALS: BP 124/71
[2023-11-25] MEDS: ADDERALL 20 MG PO ×3 (08:46→16:35)
[2023-11-25] MEDS: PROTONIX 20 MG PO (08:46)
[2023-11-25] MEDS: CRESTOR 40 MG PO (08:46)
[2023-11-25] MEDS: ENTEREG 12 MG PO ×2 (08:47→20:58)
[2023-11-25] MEDS: NON-FORMULARY ITEM 40 MG PO (08:47)
[2023-11-25] MEDS: ZOFRAN 4 MG IV (08:50)
[2023-11-25] MEDS: TYLENOL PO (11:54)
--- NOTE | 2023-11-25 13:11 | W.PN.GS2 ---
Addendum entered and electronically signed by Fahad Botello MD 11/25/23 13:25:
I saw and examined the patient.
The Byproduct Engineer's note was reviewed and I agree with the note.
Comment: Improving. Pain controlled. Stoma with stool and flatus. Exam approp. Adv to LRD.
Original Note:
Today's Communication / Plan
-
ADAT
Assessment / Plan
-
73 yo female presenting for management of retracted colostomy now POD #2 Robotic colostomy revision and creation of new end colostomy
AFVSS
Jernigan with clear yellow urine
Labs stable
+bowel function from stoma
--Advance to LRD
--Analgesics scheduled and prn
--Off IVF
--Continue home meds
--Voiding trial ?tomorrow, will d/w CRS
--Local wound care, likely will remove kath prior to d/c
--SCD's and Lovenox 40mg SQ for VTE ppx
--OOB ambulate/IS while awake
Subjective Data
-
Date of Service: November 25, 2023
Patient seen and examined at bedside with Dr. Botello. Denies n/v. Passing flatus/stool via stoma. Pain minimal. OOB/Ambulating.
Objective Data
-
Intake and Output
11/24/23 11/25/23 11/26/23
06:59 06:59 06:59
Intake Total 2620 / 2620 2850 / 2850
Output Total 720 / 720 2995 / 2995 40 / 40
Balance 1900 / 1900 -145 / -145 -40 / -40
Intake:
Oral fluids 960 / 960 1600 / 1600
IV fluids (Total) 1660 / 1660 1250 / 1250
normosol 350 / 350
Output:
Liquid stool amount 70 / 70 40 / 40
Colostomy 40 / 40
Urine, Jernigan 720 / 720 2925 / 2925
Vital Signs
Temp Pulse Resp BP Pulse Ox
97.4 F 71 12 124/71 95
11/25/23 07:32 11/25/23 07:32 11/25/23 07:32 11/25/23 07:32 11/25/23 07:32
Lab Results
11/25/23 04:39
11/25/23 04:39
Calcium 9.0 mg/dl (8.4-10.2) 11/25/23 04:39
Total Bilirubin 0.6 mg/dl (0.2-1.3) 11/16/23 08:39
AST 28 U/L (14-36) 11/16/23 08:39
ALT 30 U/L (0-35) 11/16/23 08:39
Alkaline Phosphatase 83 U/L (38-126) 11/16/23 08:39
Total Protein 7.2 g/dl (6.3-8.2) 11/16/23 08:39
Albumin 4.3 g/dl (3.5-5.0) 11/16/23 08:39
Physical Exam
-
NAD AAOx3
ABD: Soft, nondistended, mild tenderness palpation at incision sites. Incisions with glue dressings. Lower abdominal incision c,d,i. Left-sided colostomy with pink mucosa, flatus and liquid stool noted in appliance
Jernigan with clear, yellow urine
--- NOTE | 2023-11-25 13:29 | PTCARENOTE ---
after teaching PNA, skin breakdown,GI motility, nurse able to encourage pt to sit at bedside then stand. get wash. ate at side of bed.
[2023-11-25 15:00] VITALS: BP 103/68
[2023-11-25] MEDS: LOVENOX 40 MG SC (16:36)
[2023-11-25] MEDS: NON-FORMULARY ITEM 1 MG PO (21:48)
[2023-11-25] MEDS: ABILIFY 10 MG PO (21:49)
[2023-11-25] MEDS: KLONOPIN 0.5 MG PO (21:49)
[2023-11-25 22:00] VITALS: BP 114/67
[2023-11-26] MEDS: TYLENOL 650 MG PO ×4 (03:22→15:59)
[2023-11-26] MEDS: TORADOL 15 MG IV ×2 (05:24→12:36)
[2023-11-26] MEDS: SYNTHROID 150 MCG PO (05:25)
[2023-11-26 06:00] VITALS: BMI 30.5
[2023-11-26 08:05] VITALS: BP 132/79
[2023-11-26] MEDS: CRESTOR 40 MG PO (08:14)
[2023-11-26] MEDS: PROTONIX 20 MG PO (08:14)
[2023-11-26] MEDS: ADDERALL 20 MG PO ×2 (08:14→12:39)
[2023-11-26] MEDS: ENTEREG 12 MG PO (08:14)
[2023-11-26] MEDS: NON-FORMULARY ITEM 40 MG PO (08:15)
--- NOTE | 2023-11-26 10:52 | CM ---
Case management following for discharge planning
Chart reviewed. Met with pt at bedside
Discussed VN - prefers [facility]
TT sent to VN Liaison for home care needs
[facility] will transport home when discharged
Plan - anticipate home with [facility] when medically ready
[2023-11-26] MEDS: ROXICODONE 5 MG PO (10:56)
--- NOTE | 2023-11-26 12:00 | WOUNDNOTE ---
[facility] RN note: Patient sitting in recliner chair. Stoma pink and slightly budded. Stoma opening (os) near skin level at 6 o'clock. Peristomal skin irritated locally from some stool leakage. Instructed patient appliance change using no sting barrier
wipe to red skin, Markos wafer # [id number] (or use soft convex wafer # [id number]) with 1/2 Ronald seal molded around stoma or back of cut wafer opening, and Markos pouch # [id number]. Some ostomy supplies given. Patient for probable discharge today with VN.
Patient given stunt driver's office number for pouching concerns.
--- NOTE | 2023-11-26 12:00 | WOUNDNOTE ---
STOMA (LUQ)(patient in chair position).
--- NOTE | 2023-11-26 12:25 | VNURNOTE ---
Patient recently had [facility] and was released in Oct. Per patient ostomy is in new location now. Patient agreeable to receive VN for additional ostomy teaching. Per patient, her spouse was changing appliance for her last month. Patient wants to
learn to change appliance herself now. Patient understands frequency of visits and that [facility] will call her within a day or two from [place] to schedule visit. Referral placed in [facility].
[2023-11-26] MEDS: FLUSH (NSS) 1 FLUSH IV (12:40)
--- NOTE | 2023-11-26 12:42 | WOUNDNOTE ---
[facility] RN note: Patient sitting in recliner chair. Stoma pink and slightly budded. Stoma opening (os) near skin level at 6 o'clock. Peristomal skin irritated locally from some stool leakage. Instructed patient appliance change using no sting barrier
wipe to red skin, Markos wafer # [id number] (or use soft convex wafer # [id number]) with 1/2 Ronald seal molded around stoma or back of cut wafer opening, and Markos pouch # [id number]. Some ostomy supplies given. Patient for probable discharge today with VN.
Patient given sprinkler installer's office number for pouching concerns.
--- NOTE | 2023-11-26 13:03 | WOUNDNOTE ---
[facility] RN Note: Confirmed with Jazmyn Galarza, colorectal [employer] that patient can use a convex wafer is needed.
--- NOTE | 2023-11-26 13:04 | W.PN.CRS1 ---
Today's Communication / Plan
-
DC Hard[place]
Kath removed
One last wound care teaching
Discharge later today
Assessment/Plan
-
73 yo female presenting for management of retracted colostomy now POD #3 Robotic colostomy revision and creation of new end colostomy
AFVSS
[place] with clear yellow urine
Labs stable
+bowel function from stoma
--Continue low residue diet
--Analgesics scheduled and prn
--Continue home meds
--D/C harding (discussed with Dr. Slater)
--Local wound care, removed Kath. [place] to be removed in post op office visit.
--SCD's and Lovenox 40mg SQ for VTE ppx
--OOB ambulate/IS while awake
-- I have asked wound RN for 1 final teaching
--Okay for discharge later today if voids post Harding removal. All discharge instructions discussed with patient including medications activity levels and follow-up. Visiting nurse upon discharge.
Subjective Data
Procedure
11/22 - Robotic colostomy revision
Subjective Data
Date of Service: November 26, 2023
Patient states that she is feeling really well.� She had some nausea yesterday which resolved.� She had a breakfast and she has no nausea today.� She has no pain.� She would like to go home later today.
Objective Data
-
Vital Signs
Temp Pulse Resp BP Pulse Ox
97.6 F 90 16 132/79 94
11/26/23 08:05 11/26/23 08:05 11/26/23 08:05 11/26/23 08:05 11/26/23 08:05
Intake & Output
11/25/23 11/26/23 11/27/23
06:59 06:59 06:59
Intake Total 2850 / 2850 1440 / 1440
Output Total 2995 / 2995 1930 / 1930 500 / 500
Balance -145 / -145 -490 / -490 -500 / -500
Intake:
Oral fluids 1600 / 1600 1440 / 1440
IV fluids (Total) 1250 / 1250
Output:
Liquid stool amount 70 / 70 230 / 230
Colostomy 70 / 70 230 / 230
Urine, [place]ing 2925 / 2925 1700 / 1700 500 / 500
Lab Results
11/25/23 04:39
11/25/23 04:39
Physical Exam
-
General: No Acute Distress and AOx3
Abdomen: Soft, Non Distended, Non Tender and Other (colostomy warm and pink with output)
Skin: Warm and Dry
Wound: Dressing Changed (kath removed, carlos alberto in place)
--- NOTE | 2023-11-26 13:11 | W.DS.TRANS ---
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
-
Discharge Instructions:
Sleep Apnea Risk Low
Discharge Diagnosis/Procedures colostomy revision
Diet Low Residue
Activity No strenuous activity
Additional Activity No lifting over 10 pounds (gallon of milk)
Driving Restrictions No driving for 1 week
Bathing Restrictions OK to Shower
Wound Care Cover incision with gauze and paper tape. Okay
to leave open to air once drainage stops. Okay
to leave open to shower and then replace with
gauze and tape. Selene will be removed during
your office appointment with Dr. Coombs.
Instructions: Low Fiber Diet
Stand-Alone Forms:
Changes to Home Medications: Yes
Discharge Medications:
DC Medications w/original date entered in [place]
coenzyme Q10 100 mg capsule (CoQ-10) 200 mg PO DAILY Supplement 06/13/22
esomeprazole magnesium 20 mg capsule,delayed release (Nexium) 20 mg PO DAILY Gastrointestinal Issue 06/13/22
fluticasone propionate 50 mcg/actuation nasal spray,suspension 2 spray intranasal DAILYPRN PRN allergies 06/13/22
levothyroxine 150 mcg tablet 150 mcg PO DAILY Thyroid 06/13/22
loratadine 10 mg tablet (Claritin) 10 mg PO DAILYPRN PRN allergies 06/13/22
ramelteon 8 mg tablet (Rozerem) 8 mg PO HS Mental Health 06/13/22
vortioxetine 20 mg tablet (Trintellix) 40 mg PO DAILY Mental Health 06/13/22
clonazepam 1 mg tablet (Klonopin) 0.5 mg PO HS Sleep 08/15/22
multivitamin 1 tab PO DAILY Supplement 08/15/22
aripiprazole 10 mg tablet (Abilify) 10 mg PO HS Mental Health/Anxiety 08/27/23
calcium carbonate (Calcium 600) 1,200 mg PO DAILY Supplement 09/14/23
acetaminophen 325 mg tablet 650 mg PO Q4H PRN pain 11/16/23
clonazepam 0.5 mg tablet 0.25 mg PO BID PRN anxiety 11/16/23
dextroamphetamine-amphetamine 20 mg tablet (Adderall) 20 mg PO TID adhd 11/16/23
diclofenac sodium 1 % topical gel 1 ea topical PRN PRN pain 11/16/23
ibuprofen 200 mg tablet 400 mg PO Q6H PRN pain 11/16/23
rosuvastatin 40 mg tablet (Crestor) 40 mg PO DAILY 11/16/23
Home Medication Changes
Stop: neomycin, metronidazole, sutab prep
Pending Results: No
[2023-11-26 15:25] VITALS: BP 100/56
[2023-11-26] MEDS: FLUAD (65 yr+) 2024-2025 FORMULA 0.5 ML IM (16:00)
--- NOTE | 2023-11-28 14:28 | WOUNDNOTE ---
WOC RN note: T/c Spoke with Ivana schaffer [place] and ordered patient an ostomy secure starter kit.
== END 2023-11-26 16:25 | disposition home health service (06) | DRG 331 ==
LOC: 2 SOUTH 06:02
PROVIDERS: Registered Nurse; ADMITTING PHYSICIAN Surgery; FAMILY PHYSICIAN Nurse Practitioner Adult Health
PROC: 0D1E4Z4 Bypass Large Intestine to Cutaneous, Percutaneous Endoscopic Approach (ICD-10-PCS; 2023-11-23)
PROC: 8E0W4CZ Robotic Assisted Procedure of Trunk Region, Percutaneous Endoscopic Approach (ICD-10-PCS; 2023-11-23)
DX: K94.09 Other complications of colostomy (principal); Y83.3 Surgical operation with formation of external stoma as the cause of abnormal reaction of the patient, or of later complication, without mention of misadventure at the time of the procedure
CPT/HCPCS: 80048; 80053; 83036; 85025; 85027; 86850; 86900; 86901; 90662; G0008; J1335; P9045

== ENCOUNTER → 2024-01-22 12:20 | Outpatient (REF) | payer OTHER, SELFPAY ==
[2024-01-22 14:09] LABS: % Basophils 0.7 % (0-2); % Eosinophils 0.9 % (0-6); % Immature Granulocytes 0.2 % (0-0.5); % Lymphocytes 26.4 % (20.5-51.1); % Monocytes 7.7 % (1.7-9.3); % Neutrophils 64.1 % (42.2-75.2); Absolute Eosinophils 0.1 10^3/uL (0-0.7); Absolute Lymphocytes 1.5 10^3/uL (1.2-3.4); Absolute Monocytes 0.4 10^3/uL (0.1-0.6); Absolute Neutrophils 3.7 10^3/uL (1.4-6.5); Hematocrit 41.2 % (37.0-47.0); Hemoglobin 13.6 g/dL (12.0-16.0); Mean Corpuscular Volume 90.7 fL (81.0-99.0); Mean Platelet Volume 9.6 fL (7.4-10.4); Nucleated Red Blood Cells % 0 %; Platelet Count 310 10^3/uL (130-400); Red Blood Cell Count 4.54 10^6/uL (4.20-5.40); Red Cell Dist. Width 12.4 % (11.5-14.5); White Blood Cell Count 5.7 10^3/uL (4.8-10.8)
[2024-01-22 15:33] LABS: Iron 108 ug/dl (37-170)
[2024-01-22 15:42] LABS: Percent Saturation 30 % (20-50); Total Iron Binding Capacity 351 ug/dl (265-497)
[2024-01-22 16:09] LABS: Ferritin 17.5 ng/ml (11.1-264.0)
[2024-01-22 16:40] LABS: Folate 15.8 ng/ml (2.76-20); Vitamin B12 356 pg/ml (239-931)
== END ==
LOC: WDC 12:20
PROVIDERS: Nurse Practitioner Adult Health; ATTENDING PHYSICIAN Nurse Practitioner Adult Health
DX: C20 Malignant neoplasm of rectum (principal); R92.2 Inconclusive mammogram; R92.333 Mammographic heterogeneous density, bilateral breasts
CPT/HCPCS: 36415; 76641; 82607; 82728; 82746; 83540; 83550; 85025

== ENCOUNTER → 2024-05-08 09:11 | Outpatient (REF) | payer OTHER, SELFPAY ==
[2024-05-08 10:17] LABS: % Basophils 1.1 % (0-2); % Eosinophils 1.5 % (0-6); % Immature Granulocytes 0.4 % (0-0.5); % Lymphocytes 25.6 % (20.5-51.1); % Monocytes 8.7 % (1.7-9.3); % Neutrophils 62.7 % (42.2-75.2); Absolute Basophils 0.1 10^3/uL (0-0.2); Absolute Eosinophils 0.1 10^3/uL (0-0.7); Absolute Lymphocytes 1.2 10^3/uL (1.2-3.4); Absolute Monocytes 0.4 10^3/uL (0.1-0.6); Absolute Neutrophils 2.9 10^3/uL (1.4-6.5); Hematocrit 40.6 % (37.0-47.0); Hemoglobin 13.7 g/dL (12.0-16.0); Mean Corp Hgb Conc. 33.7 g/dL (33.0-37.0); Mean Corpuscular Hgb 30.6 pg (27.0-31.0); Mean Corpuscular Volume 90.6 fL (81.0-99.0); Mean Platelet Volume 9.8 fL (7.4-10.4); Nucleated Red Blood Cells % 0 %; Platelet Count 316 10^3/uL (130-400); Red Blood Cell Count 4.48 10^6/uL (4.20-5.40); Red Cell Dist. Width 12.4 % (11.5-14.5); White Blood Cell Count 4.6 10^3/uL (4.8-10.8)
[2024-05-08 10:47] LABS: ALT (SGPT) 31 U/L (0-35); AST (SGOT) 29 U/L (14-36); Albumin 4.6 g/dl (3.5-5.0); Alkaline Phosphatase 83 U/L (38-126); Blood Urea Nitrogen 9 mg/dl (7-17); Calcium 9.9 mg/dl (8.4-10.2); Carbon Dioxide 26 mmol/L (22-30); Chloride 103 mmol/L (98-107); Glucose 107 mg/dl (70-99); Potassium 4.5 mmol/L (3.5-5.1); Sodium 140 mmol/L (135-145); Total Bilirubin 0.9 mg/dl (0.2-1.3); Total Protein 7.5 g/dl (6.3-8.2); eGFR > 60.00
[2024-05-08 10:55] LABS: IgA 294 mg/dl (70-400)
[2024-05-08 10:58] LABS: LDL Cholesterol, Direct 78 mg/dl
[2024-05-08 12:54] LABS: Folate > 20.0 ng/ml (2.76-20); Vitamin B12 366 pg/ml (239-931)
[2024-05-08 15:10] LABS: CEA 0.82 ng/ml
[2024-05-10 06:53] LABS: tTG IgA Antibody 1.32 FLU (0.00-4.99)
[2024-05-11 00:21] LABS: Endomysial IgA Antibody Titer <1:10 (<1:10)
== END ==
LOC: REG 09:11
PROVIDERS: ATTENDING PHYSICIAN Internal Medicine Hematology & Oncology; FAMILY PHYSICIAN Nurse Practitioner Adult Health; OTHER PHYSICIAN Nurse Practitioner Family; OTHER PHYSICIAN Student in an Organized Health Care Education/Training Program; OTHER PHYSICIAN Surgery; REFERRING PHYSICIAN Internal Medicine Gastroenterology
DX: C20 Malignant neoplasm of rectum (principal); E78.2 Mixed hyperlipidemia; Z79.899 Other long term (current) drug therapy; E03.9 Hypothyroidism, unspecified; K90.0 Celiac disease
CPT/HCPCS: 36415; 80053; 82378; 82607; 82746; 82784; 83516; 83721; 84443; 85025; 86231

== ENCOUNTER → 2024-05-14 09:25 | Outpatient (REF) | payer OTHER, SELFPAY | LOC: RAD 09:25 | PROVIDERS: ATTENDING PHYSICIAN Internal Medicine Hematology & Oncology; FAMILY PHYSICIAN Nurse Practitioner Family | DX: C20 Malignant neoplasm of rectum (principal) | CPT/HCPCS: 71260; 74177; Q9967 ==

== ENCOUNTER → 2024-07-03 08:20 | Outpatient (REF) | payer OTHER, SELFPAY ==
[2024-07-03 09:46] LABS: Hematocrit 41.1 % (37.0-47.0); Hemoglobin 13.7 g/dL (12.0-16.0); Mean Corp Hgb Conc. 33.3 g/dL (33.0-37.0); Mean Corpuscular Hgb 30.6 pg (27.0-31.0); Mean Corpuscular Volume 91.9 fL (81.0-99.0); Mean Platelet Volume 9.7 fL (7.4-10.4); Platelet Count 297 10^3/uL (130-400); Red Blood Cell Count 4.47 10^6/uL (4.20-5.40); Red Cell Dist. Width 12.5 % (11.5-14.5); White Blood Cell Count 4.2 10^3/uL (4.8-10.8)
[2024-07-03 11:49] LABS: Blood Urea Nitrogen 8 mg/dl (7-17); Calcium 9.8 mg/dl (8.4-10.2); Carbon Dioxide 26 mmol/L (22-30); Chloride 104 mmol/L (98-107); Glucose 101 mg/dl (70-99); Potassium 4.8 mmol/L (3.5-5.1); Sodium 139 mmol/L (135-145); eGFR > 60.00
== END ==
LOC: REG 08:20
PROVIDERS: ATTENDING PHYSICIAN Urology; FAMILY PHYSICIAN Nurse Practitioner Family
DX: R15.9 Full incontinence of feces (principal); Z01.818 Encounter for other preprocedural examination
CPT/HCPCS: 36415; 80048; 85027; 93005

== ENCOUNTER 2024-10-13 09:51 | Inpatient (IN) | payer OTHER, SELFPAY ==
[2024-10-08 11:13] LABS: Hematocrit 39.0 % (37.0-47.0); Hemoglobin 12.8 g/dL (12.0-16.0); Mean Corp Hgb Conc. 32.8 g/dL (33.0-37.0); Mean Corpuscular Volume 91.8 fL (81.0-99.0); Platelet Count 287 10^3/uL (130-400); Red Cell Dist. Width 12.2 % (11.5-14.5)
[2024-10-08 11:50] LABS: Blood Urea Nitrogen 11 mg/dl (7-17); Calcium 9.4 mg/dl (8.4-10.2); Carbon Dioxide 29 mmol/L (22-30); Chloride 102 mmol/L (98-107); Glucose 98 mg/dl (70-99); Potassium 4.5 mmol/L (3.5-5.1); Sodium 136 mmol/L (135-145); eGFR 59.49
[2024-10-08 14:19] VITALS: BMI 30.7
[2024-10-13] VITALS (13 sets, daily range): BP systolic 78–120; BP diastolic 52–68; BMI 30.7
[2024-10-13] MEDS: NORMOSOL-R/PLASMALYTE-A 1000 IV (10:17)
[2024-10-13] MEDS: TYLENOL 1000 MG PO (10:17)
--- NOTE | 2024-10-13 11:29 | HP.FOC2 ---
Focused History & Physical
Chief Complaint
HPI:
Chief Complaint: Parastomal hernia
HPI / Indication for Planned Procedure: The patient is a 73-year-old female with a previous history of a distal rectal cancer treated with neoadjuvant chemoradiation followed by coloanal pull-through with diverting ileostomy. After reversal she had
difficulties with incontinence and prolapse which was subsequently managed with a robotic and sigmoid colostomy and creation of a permanent colostomy in the left upper quadrant. The patient has noticed progressive enlarging swelling in the region
of her colostomy. There is discomfort and an ache in the area but no significant pain. Her ostomy continues to function regularly. CT imaging showed a left-sided parastomal hernia along the medial aspect of the left rectus muscle measuring 4.7 cm
in width and spanning a vertical length of 4.7 cm as well. She presents today for scheduled operative correction.
Relevant Past Medical History: Other (History of MRSA, celiac disease, history of rectal cancer, depression, hypothyroidism, hypercholesterolemia, insomnia, GERD)
Relevant Social History: Negative
Relevant Family History: Negative
Relevant Past Surgical History: Positive for (Cataracts, proctectomy with diverting loop ileostomy. Reversal of ileostomy. Permanent end colostomy.)
Review of Systems
Review of Pertinent Systems: All Systems Negative
Medication
See Medication form for detailed medications: Yes
Medication List (including Herbals & OTC):
coenzyme Q10 100 mg capsule (CoQ-10) 200 mg PO DAILY Supplement 06/13/22
esomeprazole magnesium 20 mg capsule,delayed release (Nexium) 20 mg PO DAILY Gastrointestinal Issue 06/13/22
fluticasone propionate 50 mcg/actuation nasal spray,suspension 2 spray intranasal DAILYPRN PRN allergies 06/13/22
levothyroxine 150 mcg tablet 150 mcg PO DAILY Thyroid 06/13/22
loratadine 10 mg tablet (Claritin) 10 mg PO DAILYPRN PRN allergies 06/13/22
ramelteon 8 mg tablet (Rozerem) 8 mg PO HS Mental Health 06/13/22
multivitamin 1 tab PO DAILY Supplement 07/11/23
calcium carbonate (Calcium 600) 1,200 mg PO DAILY Supplement 09/14/23
acetaminophen 325 mg tablet 650 mg PO Q4H PRN pain 11/16/23
dextroamphetamine-amphetamine 20 mg tablet (Adderall) 20 mg PO TID adhd 11/16/23
diclofenac sodium 1 % topical gel 1 ea topical PRN PRN pain 11/16/23
ibuprofen 200 mg tablet 400 mg PO Q6H PRN pain 11/16/23
rosuvastatin 40 mg tablet (Crestor) 40 mg PO DAILY 11/16/23
ondansetron 4 mg disintegrating tablet 4 mg PO Q8H PRN nausea and vomiting 10 days #30 tabs 10/03/24
clonazepam 0.5 mg tablet 0.25 mg PO HSPRN PRN SLEEP 10/07/24
desvenlafaxine succinate 100 mg tablet,extended release 24 hr (Pristiq) 100 mg PO DAILY 10/07/24
acetaminophen 500 mg tablet 1,000 mg PO Q6H PRN pain 10/13/24
Medications Reviewed: Yes
Allergies and Reactions
Patient has Allergies: Yes
Noted Allergies and Reactions:
Allergy/AdvReac Type Severity Reaction Status Date / Time
lamotrigine (From Lamictal) Allergy RASH/FEVER Verified 10/13/24 09:55
levofloxacin (From Levaquin) Allergy JOINT PAIN Verified 10/13/24 09:55
oxaliplatin Allergy Anaphylaxis Verified 10/13/24 09:55
Sulfa (Sulfonamide Allergy RASH/FEVER Verified 10/13/24 09:55
Antibiotics)
Pertinent Physical Exam
All Other Systems: Negative
Head/Neck: Normal
Lungs: Normal
Heart: Normal
Abdomen: Other (Left upper abdominal wall and colostomy with large parastomal hernia. Multiple well-healed abdominal surgical scars.)
Extremities: Normal
Neurological: Normal
Diagnosis / Assessment
73-year-old female presenting for scheduled operative correction of a parastomal hernia
Plan / Procedure
Robotic assisted laparoscopic repair parastomal hernia with mesh
Anesthesia/Sedation to be done by Anesthesia Provider: Yes
--- NOTE | 2024-10-13 11:34 | W.SUR.PREOP ---
Pre-Operative Surgical Note
-
I have examined this patient prior to the performance of the scheduled procedure.
The patient's condition is unchanged from the time of the current History and
Physical and the patient is able to undergo the scheduled procedure.
--- NOTE | 2024-10-13 16:30 | W.IMMPOSTOP ---
Addendum entered and electronically signed by Theo Sam MD 10/13/24 17:10:
#[id number]
Original Note:
Surgical Immed Post Op Note
-
Primary Surgeon: Theo Sam MD
Assisting Surgeon: Lucía Garcia PA-C
Pre-op Diagnosis: Parastomal hernia
Post-op Diagnosis: Parastomal hernia; 5 cm x 5 cm
Procedure Performed: Robotic assisted laparoscopic repair of parastomal hernia with mesh; Sugarbaker technique, Ventralight ST 18 cm x 15 cm
Anesthesia Type: GETA +0.25% Marcaine with epi
Specimen / Cultures: None
Estimated Blood Loss: 12 mL
Complications: None immediate
Operative Findings: Large parastomal hernia but no significant adhesions. Fascial edges cleared circumferentially. Fascial defect was approximately 5 x 5 cm. Transverse colon mesentery mobilized from any adhesions to allow for lateralization.
Fascial defect closed along the vertical orientation with 2 strands of 0 PDS STRATAFIX symmetric suture in a running continuous manner. Residual ostomy fascial opening approximately 2.5cm. Underlay mesh repair with Ventralight ST 18 cm x 15 cm
oriented vertically. Transverse and colostomy brought adjacent to abdominal wall with interrupted 2-0 Vicryl stitches to lateralize it towards the midline and left abdomen horizontally from the fascial opening overlying the 5 cm. Mesh secured to
posterior sheath and linea alba circumferentially except at ostomy exit site utilizing 2-0 PDS STRATAFIX spiral x 4.
No additional incidental intraoperative findings
The assistance of Lucía Royal PA-C was required due to the complexity of the procedure. During the procedure Lucía Royal PA-C assisted with port placement, robotic instrumentation and suture material exchanges, and closure of the surgical incision
sites. I was present for the entirety of the operative procedure through closure.
[2024-10-13] MEDS: DILAUDID 0.25 MG IV ×2 (17:10→17:26)
[2024-10-13] MEDS: NSS 1000 IV (17:42)
--- NOTE | 2024-10-13 18:43 | PTCARENOTE ---
Pt received from the PACU via bed. Transport was w/o incident. Pt is AAOx3, VSS, Pt is afebrile. Pt's abd with 4 Lap sites well approx. w/ surgi glue. Colostomy to left abd w/ pink stoma/budded. Pt c/o gas pain, and denies nausea at this time. Pt
instructed on plan of care. Pt verbalized understanding of instructions. Call cleary is within reach.
[2024-10-13] MEDS: ADDERALL PO (18:55)
[2024-10-13] MEDS: LOVENOX 40 MG SC (19:45)
[2024-10-13] MEDS: DILAUDID 0.5 MG IV (20:29)
[2024-10-14] MEDS: NSS 1000 IV ×3 (00:15→16:01)
[2024-10-14] MEDS: DILAUDID 1 MG IV (00:15)
[2024-10-14 03:09] VITALS: BP 107/55
[2024-10-14] MEDS: TORADOL 10 MG IV ×3 (05:02→20:50)
[2024-10-14] MEDS: SYNTHROID 150 MCG PO (05:03)
[2024-10-14] MEDS: DILAUDID 0.5 MG IV ×5 (06:46→21:58)
--- NOTE | 2024-10-14 06:51 | W.PN.GS2 ---
Today's Communication / Plan
-
`
Assessment / Plan
-
Assessment: 73 y/o female POD#1 s/p RAL repair parastomal hernia with mesh; Sugarbaker technique
h/o rectal cancer s/p proctectomy with permanent end transverse colostomy; hypothyroid, GERD, anxiety/depression
AFVSS
overall with pain in anticipated areas given location of end colostomy in the LUQ adjacent to costal margin and diaphragm
no ostomy function yet
AM labs pending
Plan: multimodal pain control options
clear liquid diet for comfort awaiting returning GI function post op
renew IVFs
home meds PO
harding removed this AM - DTV
encourage OOBTC/ambulation postop
lovenox for VTEp
Subjective Data
-
Date of Service: October 14, 2024
pt seen and examined
chief complaint is post op pain in the left abdomen and costal margin
worse with movement and deep inspiration
mild nausea/anorexia
no ostomy output yet
Objective Data
-
Intake and Output
10/12/24 10/13/24 10/14/24
06:59 06:59 06:59
Intake Total 2230 / 2230
Output Total 700 / 700
Balance 1530 / 1530
Intake:
Oral fluids 690 / 690
IV fluids (Total) 1540 / 1540
normosol 100 / 100
Output:
Urine, Harding 700 / 700
Vital Signs
Temp Pulse Resp BP Pulse Ox
98.2 F 66 16 107/55 92
10/14/24 03:09 10/14/24 03:09 10/14/24 03:09 10/14/24 03:09 10/14/24 03:09
Calcium 9.4 mg/dl (8.4-10.2) 10/08/24 08:53
Physical Exam
-
NAD AAOx3
ABD: soft, ND, TTP left abd and costal margin; no R/R/G
stoma retracted but pink and viable, some edema
right sided robotic sites with glue dressings - less tender
[2024-10-14 06:54] LABS: Hematocrit 32.5 % (37.0-47.0); Hemoglobin 11.0 g/dL (12.0-16.0); Mean Corp Hgb Conc. 33.8 g/dL (33.0-37.0); Mean Corpuscular Volume 92.1 fL (81.0-99.0); Platelet Count 225 10^3/uL (130-400); Red Cell Dist. Width 12.7 % (11.5-14.5)
[2024-10-14 07:40] LABS: Blood Urea Nitrogen 13 mg/dl (7-17); Calcium 8.1 mg/dl (8.4-10.2); Carbon Dioxide 24 mmol/L (22-30); Chloride 105 mmol/L (98-107); Estimated Creatinine Clearance 77 ml/min; Glucose 110 mg/dl (70-99); Potassium 4.3 mmol/L (3.5-5.1); Sodium 135 mmol/L (135-145); eGFR > 60.00
[2024-10-14 07:50] VITALS: BP 101/57
[2024-10-14] MEDS: ADDERALL 20 MG PO ×3 (08:15→17:15)
[2024-10-14] MEDS: PROTONIX 40 MG PO (08:15)
[2024-10-14 11:20] VITALS: BP 119/52
[2024-10-14] MEDS: NON-FORMULARY ITEM 100 MG PO (15:00)
[2024-10-14] MEDS: ZOFRAN 4 MG IV (15:05)
[2024-10-14 15:10] VITALS: BP 131/92
--- NOTE | 2024-10-14 15:27 | CM ---
Patient seen at bedside on 2 , Patient stated that she lives with her in a 2 story home with 2 steps to enter. Patient has colostomy supplies, no other DME. Patient PCP is a PA from [facility] in [place] and she uses the [facility] on
[address] in [place]. Patient plan is for discharge home with no needs. Patient anticipating clear liquid diet today. CM will continue to follow for discharge planning needs.
Plan; home with no needs
[2024-10-14] MEDS: COMPAZINE 5 MG IV (17:14)
[2024-10-14] MEDS: LOVENOX 40 MG SC (17:15)
[2024-10-14 19:01] VITALS: BP 120/73
[2024-10-14 23:28] VITALS: BP 140/60
[2024-10-15] MEDS: NSS 1000 IV ×3 (00:25→21:28)
--- NOTE | 2024-10-15 00:53 | PTCARENOTE ---
Assumed care of the pt @ 1900. Pt is AAOx3 c/o abd pain 06/14 Dilaudid and Toradol ivp given for pain see MAR for times. Post void residual bladder scan done @ 0015 198 ml. Call cleary within reach. IVF @ 120/HR.
[2024-10-15] MEDS: DILAUDID 0.5 MG IV ×2 (01:01→03:49)
[2024-10-15 04:19] VITALS: BP 133/67
--- NOTE | 2024-10-15 04:30 | PTCARENOTE ---
Pt had sm amt bloody drainage from rectum. Orin VERDE notified and placed Lovenox and Toradol on hold. Sats 89% on RA placed on 2 LPM NC. IS encouraged good effort 750ml
[2024-10-15] MEDS: SYNTHROID 150 MCG PO (06:20)
--- NOTE | 2024-10-15 06:22 | W.PN.UPDATE ---
Update Note
Progress Note Update
RN reports this morning had approx 30 ml blood come from rectum. Pt had been having some residual mucoid coming from rectum but blood is new. Await morning labs. For now toradol and lovenox placed on hold unitl surgery eval. Vitals stable. o2 sat a
bit low so o2 was placed and IS encouraged.
[2024-10-15 06:47] LABS: Blood Urea Nitrogen 11 mg/dl (7-17); Calcium 8.5 mg/dl (8.4-10.2); Carbon Dioxide 23 mmol/L (22-30); Chloride 104 mmol/L (98-107); Estimated Creatinine Clearance 88 ml/min; Glucose 105 mg/dl (70-99); Potassium 4.0 mmol/L (3.5-5.1); Sodium 132 mmol/L (135-145); eGFR > 60.00
[2024-10-15 07:14] LABS: Hematocrit 32.6 % (37.0-47.0); Hemoglobin 10.8 g/dL (12.0-16.0); Mean Corp Hgb Conc. 33.1 g/dL (33.0-37.0); Mean Corpuscular Volume 92.4 fL (81.0-99.0); Platelet Count 210 10^3/uL (130-400); Red Cell Dist. Width 13.0 % (11.5-14.5)
--- NOTE | 2024-10-15 07:30 | W.PN.GS2 ---
Today's Communication / Plan
-
`
Assessment / Plan
-
Assessment: 73 y/o female POD#2 s/p RAL repair parastomal hernia with mesh; Sugarbaker technique
h/o rectal cancer s/p proctectomy with permanent end transverse colostomy; hypothyroid, GERD, anxiety/depression
AFVSS - intermittently tachycardic
overall with pain in anticipated areas given location of end colostomy in the LUQ adjacent to costal margin and diaphragm
some ostomy function, ostomy appears heathy and viable
leukocytosis noted on AM labs - probable reactive - monitor
mild hyponatremia
bloody/mucoid material from anus from prior bowel in discontinuity - monitor closely for risk of ischemia; d/w colorectal
Plan: multimodal pain control options - holding toradol/added ofirmev
check EKG with intermittent tachycardia
full liquid diet for comfort awaiting returning GI function post op
renew IVF at reduced rate
home meds PO
encourage OOBTC/ambulation postop
lovenox for VTEp
Subjective Data
-
Date of Service: October 15, 2024
pt seen and examined
persistent post op pain but states feels a bit more comfortable this AM then overnight
started passing some bloody mucous via anus overnight
ostomy producing air, no stool yet
nursing notes some intermittent tachycardia
Objective Data
-
Intake and Output
10/14/24 10/15/24 10/16/24
06:59 06:59 06:59
Intake Total 2230 / 2230 4225 / 4225
Output Total 700 / 700 620 / 620
Balance 1530 / 1530 3605 / 3605
Intake:
Oral fluids 690 / 690 1345 / 1345
IV fluids (Total) 1540 / 1540 2880 / 2880
normosol 100 / 100
Output:
Urine, Harding 700 / 700
Urine, Voided 260 / 260
Straight cath output 360 / 360
Other:
Number of approximated MODERATE 1
amounts of urine
Vital Signs
Temp Pulse Resp BP Pulse Ox
98.2 F 58 17 133/67 90
10/14/24 23:28 10/15/24 04:19 10/14/24 23:28 10/15/24 04:19 10/14/24 23:28
Lab Results
10/15/24 05:25
10/15/24 05:25
Calcium 8.5 mg/dl (8.4-10.2) 10/15/24 05:25
Physical Exam
-
NAD AAOx3 but uncomfortable appearing
ABD: softly distended, TTP predominantly in the LUQ at hernia surgical site
right abdomen and suprapubic area without R/R/G
incisions with glue dressings
LUQ ostomy pink and some edema, no stool in appliance.
Patient has a harding catheter: No
[2024-10-15] MEDS: NON-FORMULARY ITEM 1 MG PO (07:58)
[2024-10-15] MEDS: ADDERALL 20 MG PO ×3 (07:58→16:29)
[2024-10-15] MEDS: OFIRMEV 100 IV ×3 (07:58→19:41)
[2024-10-15] MEDS: PROTONIX 40 MG PO (07:59)
[2024-10-15] MEDS: ZOFRAN 4 MG IV ×2 (08:16→16:27)
[2024-10-15 08:30] VITALS: BP 138/56
[2024-10-15] MEDS: COMPAZINE 5 MG IV ×2 (10:40→19:48)
--- NOTE | 2024-10-15 15:21 | CM ---
CM following re:discharge planning.
Reviewed pt's chart.
Pt is POD#2 s/p RAL repair parastomal hernia with mesh; Sugarbaker technique. Continue supportive carte.
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
D/c plan: home with anticipated no needs. to transport at discharge.
CM will follow with discharge plan updates as hospitalization progresses
[2024-10-15 15:30] VITALS: BP 133/69
[2024-10-15] MEDS: LOVENOX 40 MG SC (17:55)
[2024-10-15] MEDS: NON-FORMULARY ITEM 8 MG PO (19:44)
[2024-10-15 23:21] VITALS: BP 116/72
[2024-10-16] MEDS: OFIRMEV 100 IV (01:04)
[2024-10-16] MEDS: SYNTHROID 150 MCG PO (05:04)
[2024-10-16] MEDS: DILAUDID 0.5 MG IV ×4 (05:13→20:25)
[2024-10-16 07:00] VITALS: BP 157/56
[2024-10-16] MEDS: PROTONIX 40 MG PO (07:56)
[2024-10-16] MEDS: NON-FORMULARY ITEM 1 MG PO (07:56)
[2024-10-16] MEDS: ADDERALL 20 MG PO ×3 (07:56→16:33)
[2024-10-16 07:58] LABS: Hematocrit 34.6 % (37.0-47.0); Hemoglobin 11.8 g/dL (12.0-16.0); Mean Corp Hgb Conc. 34.1 g/dL (33.0-37.0); Mean Corpuscular Volume 91.8 fL (81.0-99.0); Platelet Count 215 10^3/uL (130-400); Red Cell Dist. Width 12.3 % (11.5-14.5)
[2024-10-16 08:17] LABS: Blood Urea Nitrogen 7 mg/dl (7-17); Calcium 8.9 mg/dl (8.4-10.2); Carbon Dioxide 22 mmol/L (22-30); Chloride 104 mmol/L (98-107); Estimated Creatinine Clearance 88 ml/min; Glucose 87 mg/dl (70-99); Potassium 3.8 mmol/L (3.5-5.1); Sodium 134 mmol/L (135-145); eGFR > 60.00
--- NOTE | 2024-10-16 10:25 | W.PN.GS2 ---
Today's Communication / Plan
-
`
Assessment / Plan
-
Assessment: 73 y/o female POD#2 s/p RAL repair parastomal hernia with mesh; Sugarbaker technique
h/o rectal cancer s/p proctectomy with permanent end transverse colostomy; hypothyroid, GERD, anxiety/depression
AFVSS - No further tachycardia
overall with pain in anticipated areas given location of end colostomy in the LUQ adjacent to costal margin and diaphragm
some ostomy function, ostomy appears heathy and viable
leukocytosis noted on AM labs - probable reactive - stable
mild hyponatremia
bloody/mucoid material from anus from prior bowel in discontinuity - stable, no lower abdominal pain
Plan: multimodal pain control options - Resume Toradol PRN
full liquid diet for comfort awaiting returning GI function post op
Miralax PO x1 this AM
home meds PO
encourage OOBTC/ambulation postop
lovenox for VTEp
Subjective Data
-
Date of Service: October 16, 2024
Patient seen and examined.
Postoperative left upper quadrant abdominal pain slowly improving but still significant
Mild nausea, no vomiting
Ostomy is a bit less air. Only small amount of stool passed yesterday, nothing significant.
No worsening generalized abdominal pain
Less passage of bloody mucus
Objective Data
-
Intake and Output
10/15/24 10/16/24 10/17/24
06:59 06:59 06:59
Intake Total 4225 / 4225 2540 / 2540
Output Total 620 / 620 950 / 950
Balance 3605 / 3605 1590 / 1590
Intake:
Oral fluids 1345 / 1345 780 / 780
IV fluids (Total) 2880 / 2880 1560 / 1560
IV piggybacks 200 / 200
Output:
Urine, Voided 260 / 260 950 / 950
Straight cath output 360 / 360
Other:
Number of approximated MODERATE 1 1
amounts of urine
Vital Signs
Temp Pulse Resp BP Pulse Ox
98.4 F 52 18 157/56 96
10/16/24 07:00 10/16/24 07:00 10/16/24 07:00 10/16/24 07:00 10/16/24 07:00
Lab Results
10/16/24 07:13
10/16/24 07:13
Calcium 8.9 mg/dl (8.4-10.2) 10/16/24 07:13
Physical Exam
-
NAD AAO x 3
ABD: Soft, tenderness to palpation left upper quadrant. Surgical sites with glue dressings. No generalized tenderness. No rebound rigidity or guarding.
[2024-10-16] MEDS: ZOFRAN 4 MG IV ×2 (11:40→18:20)
[2024-10-16] MEDS: MIRALAX 17 GRAMS PO (13:02)
[2024-10-16] MEDS: CLARITIN 10 MG PO (13:11)
--- NOTE | 2024-10-16 14:17 | CM ---
CM following re:discharge planning.
Reviewed pt's chart, met with pt and pt's at bedside.
Pt is POD#3 s/p RAL repair parastomal hernia with mesh; Sugarbaker technique. Continue supportive care.
IMM reviewed, placed on chart, pt has a copy.
Pt lives with 2SH and pt is independent in all areas [employer] WORK[employer].
D/c plan: home with anticipated no needs. to transport at discharge.
CM will follow with discharge plan updates as hospitalization progresses
[2024-10-16] MEDS: COMPAZINE 5 MG IV ×2 (14:50→23:35)
[2024-10-16 15:02] VITALS: BP 135/68
[2024-10-16] MEDS: LOVENOX 40 MG SC (18:21)
[2024-10-16 23:10] VITALS: BP 165/93
[2024-10-17] MEDS: DILAUDID 0.5 MG IV (02:55)
[2024-10-17 03:00] VITALS: BP 106/59
[2024-10-17] MEDS: ZOFRAN 4 MG IV ×2 (03:00→11:55)
--- NOTE | 2024-10-17 04:15 | PTCARENOTE ---
Pt woke up to use the bathroom and wash her face. I asked her if she wanted to take a walk around the unit & she said yes. Pt took a short walk around the unit and tolerated it well.
[2024-10-17] MEDS: SYNTHROID 150 MCG PO (05:05)
[2024-10-17 05:20] VITALS: BP 106/59
[2024-10-17 07:00] VITALS: BP 142/80
[2024-10-17 07:56] LABS: Hematocrit 35.7 % (37.0-47.0); Hemoglobin 12.3 g/dL (12.0-16.0); Mean Corp Hgb Conc. 34.5 g/dL (33.0-37.0); Mean Corpuscular Volume 89.9 fL (81.0-99.0); Platelet Count 258 10^3/uL (130-400); Red Cell Dist. Width 12.1 % (11.5-14.5)
[2024-10-17] MEDS: PROTONIX 40 MG PO (08:13)
[2024-10-17] MEDS: MIRALAX 17 GRAMS PO (08:13)
[2024-10-17] MEDS: ADDERALL 20 MG PO ×3 (08:13→15:56)
[2024-10-17] MEDS: NON-FORMULARY ITEM 100 MG PO (08:13)
[2024-10-17] MEDS: COMPAZINE 5 MG IV (08:19)
[2024-10-17 08:27] LABS: Blood Urea Nitrogen 13 mg/dl (7-17); Calcium 8.9 mg/dl (8.4-10.2); Carbon Dioxide 22 mmol/L (22-30); Chloride 103 mmol/L (98-107); Estimated Creatinine Clearance 77 ml/min; Glucose 116 mg/dl (70-99); Potassium 3.8 mmol/L (3.5-5.1); Sodium 132 mmol/L (135-145); eGFR > 60.00
[2024-10-17] MEDS: TORADOL 10 MG IV (10:51)
--- NOTE | 2024-10-17 11:05 | CM ---
Reviewed the chart notes and spoke with the patient at the bedside. Patient anticipates no needs at discharge. Patient's spouse to provide transportation home. CM continues to be available to patient/family and is monitoring medical plan for
needs at discharge.
Plan: Discharge to home when medically stable. No needs anticipated.
--- NOTE | 2024-10-17 12:07 | W.PN.GS2 ---
Addendum entered and electronically signed by Theo Sam MD 10/17/24 14:21:
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
Still with intermittent nausea but patient advises she has been experiencing nausea for about 4 to 6 weeks preoperatively but she was attributing it to the presence of the hernia.
Her nausea is no worse now that the hernia is repaired. It is about the same.
Ostomy started functioning overnight with soft/liquidy stool.
AFVSS NAD AAO x 3
Left-sided ostomy with stool and air
Right sided robotic trocar sites
Right sided abdominal wall edema noted
Assessment/plan: Improving GI function postoperatively
P.o. diet as tolerated
Stop IVs
Monitor right lateral abdominal wall edema
Probable DC in 24 hours
Original Note:
Today's Communication / Plan
-
liquids as tolerated
Assessment / Plan
-
Assessment: 73 y/o female POD#3 s/p RAL repair parastomal hernia with mesh; Sugarbaker technique
h/o rectal cancer s/p proctectomy with permanent end transverse colostomy; hypothyroid, GERD, anxiety/depression
AFVSS
Pain improving, still with some nausea
Ostomy now productive of small amount of stool, flatus present
Leukocytosis resolved
mild hyponatremia
Plan: multimodal pain control options
full liquid diet for comfort awaiting improvement in nausea
Miralax daily
home meds PO
c/w antiemetics prn
encourage OOBTC/ambulation postop
lovenox for VTEp
Subjective Data
-
Date of Service: October 17, 2024
Pt seen and examined at bedside. Denies vomiting but still with nausea. Passing stool/flatus via stoma. Feels much better overall.
Objective Data
-
Intake and Output
10/16/24 10/17/2425
06:59 06:59 06:59
Intake Total 2540 / 2540 1090 / 1090
Output Total 950 / 950
Balance 1590 / 1590 1090 / 1090
Intake:
Oral fluids 780 / 780 1090 / 1090
IV fluids (Total) 1560 / 1560
IV piggybacks 200 / 200
Output:
Urine, Voided 950 / 950
Other:
Number of approximated SMALL 1
amounts of urine
Number of approximated MODERATE 1 3
amounts of urine
Vital Signs
Temp Pulse Resp BP Pulse Ox
98.4 F 82 18 142/80 93
10/17/24 07:00 10/17/24 07:00 10/17/24 07:00 10/17/24 07:00 10/17/24 08:06
Lab Results
10/17/24 07:45
10/17/24 07:45
Calcium 8.9 mg/dl (8.4-10.2) 10/17/24 07:45
Physical Exam
-
NAD AAO x 3
ABD: Soft, NT. Surgical sites with glue dressings. No generalized tenderness. No rebound rigidity or guarding.
Stoma pink/viable, some retraction. Productive of stool/flatus.
[2024-10-17 15:14] VITALS: BP 127/74
[2024-10-17] MEDS: ROXICODONE 5 MG PO ×2 (15:56→22:11)
[2024-10-17] MEDS: LOVENOX 40 MG SC (17:30)
[2024-10-17] MEDS: NON-FORMULARY ITEM 1 MG PO (20:26)
[2024-10-17 23:00] VITALS: BP 134/49
[2024-10-18] MEDS: ROXICODONE 5 MG PO ×2 (04:20→10:03)
[2024-10-18] MEDS: SYNTHROID 150 MCG PO (05:17)
[2024-10-18 06:10] LABS: Hematocrit 33.9 % (37.0-47.0); Hemoglobin 11.4 g/dL (12.0-16.0); Mean Corp Hgb Conc. 33.6 g/dL (33.0-37.0); Mean Corpuscular Volume 89.9 fL (81.0-99.0); Platelet Count 267 10^3/uL (130-400); Red Cell Dist. Width 12.6 % (11.5-14.5)
[2024-10-18] MEDS: ADDERALL 20 MG PO ×2 (07:11→12:10)
[2024-10-18] MEDS: MIRALAX PO ×2 (07:12→07:17)
[2024-10-18] MEDS: NON-FORMULARY ITEM 100 MG PO (07:12)
[2024-10-18] MEDS: PROTONIX 40 MG PO (07:12)
[2024-10-18 07:20] VITALS: BP 124/74
[2024-10-18 11:36] VITALS: BP 143/69
--- NOTE | 2024-10-18 11:40 | W.PN.GS2 ---
Today's Communication / Plan
-
dispo planning
Assessment / Plan
-
Assessment: 73 y/o female POD#4 s/p RAL repair parastomal hernia with mesh; Sugarbaker technique
h/o rectal cancer s/p proctectomy with permanent end transverse colostomy; hypothyroid, GERD, anxiety/depression
AFVSS
Pain improving, nausea resolved. Tolerating regular diet
Ostomy productive of stool/flatus
Labs stable
Plan: multimodal pain control options
c/w regular diet
home meds PO
encourage OOBTC/ambulation postop
lovenox for VTEp
anticipate home later today
Subjective Data
-
Date of Service: October 18, 2024
Pt seen and examined at bedside. Denies nausea or vomiting. Pain much better. Ambulating well. High outputs from stoma overnight.
Objective Data
-
Intake and Output
10/17/24 10/18/24 10/19/24
06:59 06:59 06:59
Intake Total 1090 / 1090 0 / 2120 90 / 90
Output Total 400 / 400
Balance 1090 / 1090 1720 / 1720 90 / 90
Intake:
Oral fluids 1090 / 1090 0 / 2120 90 / 90
Output:
Liquid stool amount 400 / 400
Colostomy 400 / 400
Other:
Number of approximated SMALL 1
amounts of urine
Number of approximated MODERATE 3 4
amounts of urine
Vital Signs
Temp Pulse Resp BP Pulse Ox
98.8 F 73 16 143/69 97
10/18/24 11:36 10/18/24 11:36 10/18/24 11:36 10/18/24 11:36 10/18/24 11:36
Lab Results
10/18/24 05:06
10/17/24 07:45
Calcium 8.9 mg/dl (8.4-10.2) 10/17/24 07:45
Physical Exam
-
NAD AAO x 3
ABD: Soft, NT. Surgical sites with glue dressings. No generalized tenderness. No rebound rigidity or guarding.
Stoma pink/viable, some retraction. Productive of stool/flatus.
Ecchymosis/edema to right lower side/flank (improved)
--- NOTE | 2024-10-18 13:38 | W.DS.TRANS ---
Addendum entered and electronically signed by MEHREEN Denney 10/18/24 16:19:
dictated #[id number]
Original Note:
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
-
Discharge Instructions:
Sleep Apnea Risk Low
Discharge Diagnosis/Procedures Parastomal hernia s/p robotic assisted
laparoscopic repair with mesh
Diet As tolerated,Regular
Additional Diets Eat small meals at first as bloating is common
Activity No strenuous activity
Additional Activity do not lift over 20lbs for the next 4-6 weeks
Bathing Restrictions OK to Shower
Wound Care Allow the glue to flake off your incisions on
its own over the next 2-3 weeks. Avoid scrubbing
off. Ok to shower and let soap and water gently
run over your incisions, pat dry.
Instructions:
Stand-Alone Forms:
Changes to Home Medications: No
Discharge Medications:
DC Medications w/original date entered in [employer]
coenzyme Q10 100 mg capsule (CoQ-10) 200 mg PO DAILY Supplement 06/13/22
esomeprazole magnesium 20 mg capsule,delayed release (Nexium) 20 mg PO DAILY Gastrointestinal Issue 06/13/22
fluticasone propionate 50 mcg/actuation nasal spray,suspension 2 spray intranasal DAILYPRN PRN allergies 06/13/22
levothyroxine 150 mcg tablet 150 mcg PO DAILY Thyroid 06/13/22
loratadine 10 mg tablet (Claritin) 10 mg PO DAILYPRN PRN allergies 06/13/22
ramelteon 8 mg tablet (Rozerem) 8 mg PO HSPRN PRN sleep 06/13/22
multivitamin 1 tab PO DAILY Supplement 08/15/22
calcium carbonate (Calcium 600) 1,200 mg PO DAILY Supplement 09/14/23
dextroamphetamine-amphetamine 20 mg tablet (Adderall) 20 mg PO TID adhd 11/16/23
diclofenac sodium 1 % topical gel 1 ea topical PRN PRN pain 11/16/23
ibuprofen 200 mg tablet 400 mg PO Q6H PRN pain 10/11/24
rosuvastatin 40 mg tablet (Crestor) 40 mg PO DAILY High Cholesterol 11/16/23
ondansetron 4 mg disintegrating tablet 4 mg PO Q8H PRN nausea and vomiting 10 days #30 tabs 10/03/24
clonazepam 0.5 mg tablet 0.25 mg PO HSPRN PRN SLEEP 10/07/24
desvenlafaxine succinate 100 mg tablet,extended release 24 hr (Pristiq) 100 mg PO DAILY Mental Health/Anxiety 10/07/24
acetaminophen 500 mg tablet 1,000 mg PO Q6H PRN pain 10/13/24
oxycodone 5 mg tablet 5 mg PO Q4HPRN PRN breakthrough/severe pain #10 tabs 10/18/24
Home Medication Changes
Pending Results: No
--- NOTE | 2024-10-18 14:56 | CM ---
DC today
IMM on chart. DC with no needs identified.
== END 2024-10-18 15:10 | disposition home or self-care (01) | DRG 354 ==
LOC: 2 SOUTH 09:51
PROVIDERS: Registered Nurse; ADMITTING PHYSICIAN Surgery; FAMILY PHYSICIAN Nurse Practitioner Family
PROC: 8E0W4CZ Robotic Assisted Procedure of Trunk Region, Percutaneous Endoscopic Approach (ICD-10-PCS; 2024-10-13)
PROC: 0WUF4JZ Supplement Abdominal Wall with Synthetic Substitute, Percutaneous Endoscopic Approach (ICD-10-PCS; 2024-10-13)
DX: K43.5 Parastomal hernia without obstruction or gangrene (principal); E87.1 Hypo-osmolality and hyponatremia; Z85.048 Personal history of other malignant neoplasm of rectum, rectosigmoid junction, and anus; Z93.3 Colostomy status; K66.0 Peritoneal adhesions (postprocedural) (postinfection); Z79.890 Hormone replacement therapy; E03.9 Hypothyroidism, unspecified; E78.00 Pure hypercholesterolemia, unspecified; K90.0 Celiac disease; Z88.2 Allergy status to sulfonamides; F32.A Depression, unspecified; K21.9 Gastro-esophageal reflux disease without esophagitis
CPT/HCPCS: 36415; 80048; 85027; 93005; C1781; J1335

== ENCOUNTER 2024-10-20 11:02 | Emergency (ER) | payer OTHER, SELFPAY ==
[2024-10-20 11:21] VITALS: BP 111/74
[2024-10-20 11:52] VITALS: BMI 31.9
[2024-10-20] MEDS: NSS 500 IV (12:00)
[2024-10-20] MEDS: OMNIPAQUE 50 ML PO (12:03)
--- NOTE | 2024-10-20 12:06 | ED.GENMED ---
Addendum entered and electronically signed by Serge Portillo PA-C 10/23/24 08:52:
Urine culture shows Klebsiella erogenous with significant resistance pattern particular to Keflex which the patient was provided. She will continue Keflex for the surgical site cellulitis however will add doxycycline given her allergy profile. She
does continue to have urine symptoms thus indicating need for treatment
Original Note:
History of Present Illness
General
Chief Complaint: Abdominal Pain
Source: patient
Exam Limitations: none
Time Seen by Provider: 10/20/24 11:46
Nursing documentation reviewed up to this point in time: agreed with
History of Present Illness
History of Present Illness:
Patient is a 73-year-old female who is currently day 7 postop from robotic parastomal hernia repair who presents to the emergency department with worsening swelling and pain of lower abdomen. Patient reports uncomplicated surgery with Dr. Sam
last Sunday and was discharged from hospital on Sunday. At that time�apparently there was some redness of her lower abdomen which Dr. Sam was monitoring. However�patient states after returning home the redness seem to have improved somewhat
however the swelling of her lower abdomen has increased. She feels a bloating and 'heaviness' sensation across her lower abdomen. On her way to the emergency department today she noticed serous drainage from one of the port sites in her central
lower abdomen.
She has had ostomy output. She is urinating now without difficulty. She denies any fever, chills, vomiting. She has had mild nausea which she is treating with Zofran.
Patient did contact Dr. Sam's office this morning who recommended evaluation in the emergency department.
Review of Systems
Review of Systems
Allergies reviewed?: Yes
All Other Systems: ROS reviewed and negative except as documented in HPI and ROS
Phy Exam
Physical Exam
Physical Exam:
Vitals: Patient's vital signs are stable. Afebrile
General: Patient is well appearing, no acute distress. Nontoxic appearing
Skin: Erythema of right lower abdomen extending over to central abdomen. Small amount of serous drainage from surgical port site on lower central abdomen. No rashes or lesions
Head: Normocephalic, atraumatic
Eyes: Sclera nonicteric.
Throat: Protecting airway
Neck: Normal ROM, no cervical spine tenderness, no meningismus
Cardiac: Regular rate and rhythm, no murmurs.
Pulm: Normal respiratory effort, no wheezes, rales, rhonchi heard on exam
.
Abdomen: Mild distention. Abdomen soft. Erythema and tenderness surrounding surgical sites in right lower/central abdomen. No rebound tenderness or guarding
Extremities: No evidence of cyanosis or edema
Neuro: AAOx3. Grossly intact.
Psychiatric: Normal affect.
Course
Orders/Labs/Results
Orders:
Orders
10/20/24 11:55
0.9% Sodium Chloride 500 ml [Nss] 500 ml IV BOLUS
Iohexol [Omnipaque] See Protocol PO NOW STA
10/20/24 11:56
CT Abd/pel W Iv And Oral Contr Urgent
Comment: POD #7 from parastomal hernia repair
Reason For Exam: Erythema and swelling lower abdomen
10/20/24 12:04
Complete Blood Count/With Diff Urgent
Comprehensive Metabolic Panel Urgent
10/20/24 13:37
Prochlorperazine [Compazine] 5 mg IV NOW STA
10/20/24 16:47
Cephalexin Monohydrate [Keflex] 500 mg PO NOW STA
10/20/24 16:57
Urinalysis Reflex To Culture Urgent
Date Specimen was Collected: 10/20/24
Time Specimen was Collected: 16:54
Urine Microscopic Reflex Cult Urgent
Urine Culture Urgent
CASI Source: U
Specimen Description:
Date Specimen was Collected: 10/20/24
Time Specimen was Collected: 16:54
Abnormal Lab Results
10/20/24 10/20/24
12:04 16:57
RBC 3.82 L 10^6/uL
(4.20-5.40)
Hgb 11.5 L g/dL
(12.0-16.0)
Hct 34.4 L %
(37.0-47.0)
Abs Immat Gran (auto) 0.1 H 10^3/uL
(0-0.05)
Absolute Lymphs (auto) 0.7 L 10^3/uL
(1.2-3.4)
Immature Gran % 2.4 H %
(0-0.5)
Lymphocytes % 12.3 L %
(20.5-51.1)
Monocytes % 11.2 H %
(1.7-9.3)
Sodium 132 L mmol/L
(135-145)
BUN 6 L mg/dl
(7-17)
Calcium 8.2 L mg/dl
(8.4-10.2)
Total Protein 5.8 L g/dl
(6.3-8.2)
Albumin 3.1 L g/dl
(3.5-5.0)
Urine Ketones 2+ A
(Negative)
Ur Occult Blood Reflex 2+ A
(Negative)
Leukocyte Esterase Rfl 2+ A
(Negative)
Urine RBC 7-10 A /HPF
(0-2)
Urine WBC (Reflex) 21-25 A /HPF
(0-5)
Urine Bacteria (Reflex) Moderate A
(Negative)
Urine Albumin (Reflex) 1+ A
(Neg - Trace)
10/20/24 12:04
10/20/24 12:04
Vital Signs
Initial and Last Documented VS:
Initial Vital Signs
Temp Pulse Resp BP Pulse Ox
98.8 F 72 18 111/74 95
10/20/24 11:21 10/20/24 11:21 10/20/24 11:21 10/20/24 11:21 10/20/24 11:21
Last Documented Vital Signs
Temp Pulse Resp BP Pulse Ox
98.8 F 74 18 111/74 98
10/20/24 11:21 10/20/24 14:17 10/20/24 11:21 10/20/24 11:21 10/20/24 14:17
MDM/Problems Addressed
Differential Diagnosis Includes:
Not limited to: Cellulitis, intra-abdominal abscess, postoperative ileus, UTI, etc.
MDM/Problems Addressed:
73-year-old female currently 7 days postop from robotic peristomal hernia repair presenting with worsening lower abdominal swelling and erythema of skin now with serious drainage from incision. No associated fever, vomiting. She is urinating and has
output from ostomy. Vital signs and physical exam as above.
Her abdomen is soft with tenderness noted in lower abdomen with erythema of skin. No rebound tenderness, guarding, or areas of fluctuance. Incision of central lower abdomen draining minimal amount of serious fluid.
Differential includes normal postoperative healing, cellulitis, abdominal abscess, seroma, etc.
ED plan: labs, CT scan abdomen/pelvis with IV and oral contrast. Will discuss with general surgery.
Update: labs reviewed. No leukocytosis. Mild anemia stable. Chemistry unremarkable. CT scan reveals findings of possible abscess vs seroma in left anterior abdominal wall as well as possible cellulitis vs postoperative edema of lower abdominal wall.
General surgery, Dr. Sam down to evaluate patient at bedside and reviewed CT scan independently. He has low concern for acute infectious process and feels discharge home is reasonable. He will start patient on course of Keflex for possible
component of cellulitis. Will give initial dose in ED.
Will send UA and culture per general surgery.
Ultimately � patient stable for discharge home with antibiotics as sent by general surgery and close follow-up outpatient with Dr. Sam. Return precautions discussed. Patient comfortable with plan.
Chronic conditions affecting care:
Postop day 7 from parastomal hernia repair
Acute Exacerbation and/or Progression of Chronic Illness:
N/A
*Radiology
Radiology exam reviewed: radiology read reviewed
*Pulse Oximetry
SaO2: 95
Oxygen Mode of Delivery: Room air
Patient hypoxic: no
*EKG
Interpreted by ED Provider?: NA
*Lock Technician Interpretation
Rate: Lock Technician- N/A
*Critical Care Note
Total Time (30-74mins, 75-104mins- exclusive of procedures): Not Applicable
Data Reviewed
Review of Other/Old Records Reveals: Operative Reports (Operative report from 10/13/2024-robotic assisted laparoscopic repair of parastomal hernia with mesh)
Patient Management
Discussion with other providers: Stain Remover (Case discussed with general surgery)
ED Attending Note
-
Portions of this chart may have been created with voice recognition software.� Occasional wrong word or��sound alike� substitutions may have occurred due to the inherent limitations of voice recognition software.
Discharge Plan
Departure
Patient Disposition: Home (Routine Discharge)
Date of Disposition: 10/20/24
Time of Disposition: 16:52
Patient with high blood pressure during this ER visit?: No
Discharge Problem:
Cellulitis
Instructions: Cellulitis (skin infection) in adults - ED (DC)
Prescriptions:
New
cephalexin 500 mg tablet
500 mg PO Q8H 7 Days Qty: 21 0RF
No Action
levothyroxine 150 mcg Tablet
150 mcg PO DAILY
esomeprazole magnesium [Nexium] 20 mg Capsule,Delayed Release(Dr/Ec)
20 mg PO DAILY
ramelteon [Rozerem] 8 mg Tablet
8 mg PO HSPRN PRN (Reason: sleep)
fluticasone propionate 50 mcg/actuation [place],Suspension
2 spray INTRANASAL DAILYPRN PRN (Reason: allergies)
loratadine [Claritin] 10 mg Tablet
10 mg PO DAILYPRN PRN (Reason: allergies)
coenzyme Q10 [CoQ-10] 100 mg Capsule
200 mg PO DAILY
multivitamin Tablet
1 tab PO DAILY
calcium carbonate [Calcium 600] 600 mg calcium (1,500 mg) Tablet
1,200 mg PO DAILY
dextroamphetamine-amphetamine [Adderall] 20 mg Tablet
20 mg PO TID
ibuprofen 200 mg Tablet
400 mg PO Q6H PRN (Reason: pain)
rosuvastatin [Crestor] 40 mg Tablet
40 mg PO DAILY
diclofenac sodium 1 % Gel
1 ea TOPICAL PRN PRN (Reason: pain)
ondansetron 4 mg tablet,disintegrating
4 mg PO Q8H PRN (Reason: nausea and vomiting) 10 Days Qty: 30 0RF
Patient Comments:
last took 10/12/24 at 1400
desvenlafaxine succinate [Pristiq] 100 mg Tablet Extended Release 24 Hr
100 mg PO DAILY
clonazepam 0.5 mg Tablet
0.25 mg PO HSPRN PRN (Reason: SLEEP)
Rx Instructions:
PER PT TAKING 0.5 TAB HSPRN
acetaminophen 500 mg Tablet
1,000 mg PO Q6H PRN (Reason: pain)
oxycodone 5 mg tablet
5 mg PO Q4HPRN PRN (Reason: breakthrough/severe pain) Qty: 10 0RF
Referrals:
Yolie Duenas DO [Family Provider, Family Practice]
Theo Sam MD [Active, Surgical] - Keep scheduled appt
Activity Restrictions/Additional Instructions:
RETURN TO THE EMERGENCY DEPARTMENT ANY FEVER, CHILLS, PERSISTENT/WORSENING ABDOMINAL PAIN, WORSENING REDNESS, SWELLING, OR DRAINAGE FROM ABDOMINAL SITES, INTRACTABLE VOMITING, OR ANY OTHER CONCERNS
- As discussed�a prescription for Keflex has been sent to your pharmacy to cover for possible infection of the skin. Please take this as directed.
- Continue to follow all other postoperative directions as discussed with your general surgeon. Stay well-hydrated.
- Follow-up with Dr. Sam as scheduled.
Monitor your symptoms closely and return to the emergency department with any acute worsening/new symptoms or any other concerns
Interventions
Interventions:
*Risk Screen - Suicide Last Done: 10/20/24 11:23
*General Assessment Last Done: 10/20/24 12:18
*Neglect/Abuse Screening Last Done: 10/20/24 12:18
*ED- Fall Risk Assessment Last Done: 10/20/24 12:18
*ED COVID-19 Vaccine History Last Done: 10/20/24 12:18
*Nursing Disposition Last Done: 10/20/24 17:30
XA-Omfric-Dcnkydfhul Assessment Last Done: 10/20/24 13:57
Discharge Date and Time
Discharge Date/Time: 10/20/24 17:15
Print Language: CHINESE
[2024-10-20 12:15] LABS: Hematocrit 34.4 % (37.0-47.0); Hemoglobin 11.5 g/dL (12.0-16.0); Mean Corp Hgb Conc. 33.4 g/dL (33.0-37.0); Mean Corpuscular Volume 90.1 fL (81.0-99.0); Nucleated Red Blood Cells % 0 %; Platelet Count 305 10^3/uL (130-400); Red Cell Dist. Width 12.2 % (11.5-14.5)
[2024-10-20 12:28] LABS: ALT (SGPT) 18 U/L (0-35); AST (SGOT) 19 U/L (14-36); Albumin 3.1 g/dl (3.5-5.0); Alkaline Phosphatase 94 U/L (38-126); Blood Urea Nitrogen 6 mg/dl (7-17); Calcium 8.2 mg/dl (8.4-10.2); Carbon Dioxide 29 mmol/L (22-30); Chloride 98 mmol/L (98-107); Estimated Creatinine Clearance 104 ml/min; Glucose 98 mg/dl (70-99); Potassium 3.6 mmol/L (3.5-5.1); Sodium 132 mmol/L (135-145); Total Protein 5.8 g/dl (6.3-8.2); eGFR > 60.00
[2024-10-20] MEDS: COMPAZINE 5 MG IV (13:49)
--- NOTE | 2024-10-20 16:19 | W.PN.SURGUPD ---
Surgical Update
Surgical Update
Patient seen and examined in the emergency department. Her is at bedside.
Patient referred patient for ER evaluation after she felt as though she was having worsening lower abdominal wall swelling and discomfort as well as urinary frequency. She felt as though this was worse than during hospitalization. No fevers chills
or sweats. Ostomy continues to function. Intermittent nausea but no vomiting. Tolerating p.o. intake.
AFVSS
NAD AAO x 3 resting comfortably in stretcher ABD:
Ostomy appliance in place with liquid stool in bag. Mucosa pink and nonedematous.
Overall abdominal examination without significant distention. Mild tenderness. Right sided robotic surgical sites with glue dressings. There is no active drainage but there continues to be surrounding faint erythema and edema within the
subcutaneous tissues. No rebound rigidity or guarding.
White blood cell count 5.4 and without neutrophil shift.
Electrolyte panel unremarkable
CT abdomen/pelvis imaging personally reviewed as well as radiologist report. Fluid collection consistent with typical postoperative seroma where parastomal hernia repair was completed. Rather extensive abdominal wall edema and stranding suggestive
of possible cellulitis. There do not appear to be any fluid collections in the region of her port sites. No subcutaneous air around the robotic surgical sites either. No free air within the abdominal cavity. Diverted colon leading down to anal
anastomosis with some edema and intraluminal air but no signs strongly suggestive of pneumatosis and generally similar appearing to prior imaging back in May 2024.
Assessment/plan: 73-year-old female postop day #7 status post robotic assisted laparoscopic repair parastomal hernia with mesh
Suspected postoperative abdominal wall edema may be related to cellulitis about region of right lateral and suprapubic robotic surgical sites there is no evidence of abdominal wall infection nor erythema in the region of her parastomal hernia repair.
Will treat with 7-day course of Keflex (recent MRSA screening negative x 2)
Ostomy has been functioning regularly, no clinical signs of obstruction.
Check urinalysis/urine culture as well but no radiographic findings suggestive of cystitis or pyelonephritis.
Updated emergency department PA via [place] text
Patient comfortable with discharge, surgically stable for discharge with outpatient surgical follow-up in 2 weeks
[2024-10-20 17:16] LABS: Urine Character Slightly Cloudy (Clear)
[2024-10-20 17:37] LABS: Urine Squamous Cell 0-2 /LPF (Few)
[2024-10-20 17:38] LABS: Urine White Cell 21-25 /HPF (0-5)
[2024-10-20] MEDS: KEFLEX 500 MG PO (17:40)
== END 2024-10-20 17:15 | disposition home or self-care (01) ==
LOC: EMR 11:02
PROVIDERS: Physician Assistant; EMERGENCY PHYSICIAN Emergency Medicine; FAMILY PHYSICIAN Family Medicine
DX: L03.90 Cellulitis, unspecified (principal); C20 Malignant neoplasm of rectum; D64.9 Anemia, unspecified; Z93.3 Colostomy status
CPT/HCPCS: 99284; 96374; 96361; 74177; 80053; 81003; 81015; 85025; 87077; 87086; 87186; Q9967

== ENCOUNTER 2024-11-18 06:17 | Day surgery (SDC) | payer OTHER, SELFPAY | END 2024-11-18 09:35 | disposition home or self-care (01) | LOC: GI 06:17 | PROVIDERS: ATTENDING PHYSICIAN Internal Medicine Gastroenterology | DX: R12 Heartburn (principal); K31.7 Polyp of stomach and duodenum; R11.0 Nausea; K31.89 Other diseases of stomach and duodenum | CPT/HCPCS: 43239; 88305; 88342 ==

== ENCOUNTER → 2024-12-09 15:09 | Outpatient (REF) | payer OTHER, SELFPAY | LOC: RAD 15:09 | PROVIDERS: ATTENDING PHYSICIAN Internal Medicine Gastroenterology; FAMILY PHYSICIAN Family Medicine | DX: R11.0 Nausea (principal); C20 Malignant neoplasm of rectum | CPT/HCPCS: 70470; Q9967 ==

== ENCOUNTER → 2024-12-11 07:22 | Outpatient (REF) | payer OTHER, SELFPAY ==
[2024-12-11 08:19] LABS: Hematocrit 36.0 % (37.0-47.0); Hemoglobin 12.0 g/dL (12.0-16.0); Mean Corp Hgb Conc. 33.3 g/dL (33.0-37.0); Mean Corpuscular Volume 91.8 fL (81.0-99.0); Nucleated Red Blood Cells % 0 %; Platelet Count 287 10^3/uL (130-400); Red Cell Dist. Width 12.5 % (11.5-14.5)
[2024-12-11 08:24] LABS: Urine Character Slightly Cloudy (Clear)
[2024-12-11 09:04] LABS: ALT (SGPT) 18 U/L (0-35); AST (SGOT) 22 U/L (14-36); Albumin 4.3 g/dl (3.5-5.0); Alkaline Phosphatase 56 U/L (38-126); Blood Urea Nitrogen 8 mg/dl (7-17); Calcium 9.3 mg/dl (8.4-10.2); Carbon Dioxide 25 mmol/L (22-30); Chloride 104 mmol/L (98-107); Glucose 102 mg/dl (70-99); HDL Cholesterol 62 mg/dl; LDL Cholesterol, Calculated 80 mg/dl; Potassium 4.1 mmol/L (3.5-5.1); Sodium 137 mmol/L (135-145); Total Protein 7.2 g/dl (6.3-8.2); Very Low Density Lipoprotein 17 mg/dl (0-30); eGFR > 60.00
[2024-12-11 09:39] LABS: CEA 0.79 ng/ml
[2024-12-11 09:42] LABS: Urine Squamous Cell >30 /LPF (Few)
[2024-12-11 09:43] LABS: Urine Urothelial Cell 26-30 /LPF (FEW)
[2024-12-11 09:55] LABS: Glycohemoglobin (HgbA1c) 5.5 % (4.0-5.9)
== END ==
LOC: REG 07:22
PROVIDERS: ATTENDING PHYSICIAN Nurse Practitioner Family; FAMILY PHYSICIAN Internal Medicine Hematology & Oncology
DX: C20 Malignant neoplasm of rectum (principal); N39.0 Urinary tract infection, site not specified; K46.9 Unspecified abdominal hernia without obstruction or gangrene; Z93.3 Colostomy status; Z85.048 Personal history of other malignant neoplasm of rectum, rectosigmoid junction, and anus; R11.0 Nausea; R73.01 Impaired fasting glucose; E78.2 Mixed hyperlipidemia; R53.83 Other fatigue
CPT/HCPCS: 36415; 80053; 80061; 81003; 81015; 82378; 83036; 84439; 84443; 85025; 87086

== ENCOUNTER → 2025-01-07 11:25 | Outpatient (REF) | payer OTHER, SELFPAY ==
[2025-01-07 13:09] LABS: Hematocrit 39.0 % (37.0-47.0); Hemoglobin 13.2 g/dL (12.0-16.0); Mean Corp Hgb Conc. 33.8 g/dL (33.0-37.0); Mean Corpuscular Volume 91.1 fL (81.0-99.0); Nucleated Red Blood Cells % 0 %; Platelet Count 315 10^3/uL (130-400); Red Cell Dist. Width 12.4 % (11.5-14.5)
== END ==
LOC: REG 11:25
PROVIDERS: ATTENDING PHYSICIAN Nurse Practitioner Family
DX: E03.9 Hypothyroidism, unspecified (principal); D72.9 Disorder of white blood cells, unspecified
CPT/HCPCS: 36415; 84439; 84443; 85025